=== PATIENT | female | born 1950 | race Caucasian/White ===

== ENCOUNTER 2017-02-06 16:55 | Emergency (ER) | payer MEDICARE, OTHER ==
[~2017-02-06 16:55] MED LIST: ALPR1TAB2 PO; AZIT500T2 PO; DULO60CA44 PO; GABA-586 PO; MESA400C PO
[2017-02-06] MEDS ORDERED: PRED50TA PO (17:28)
--- NOTE | 2017-02-06 17:28 | PHYS DOC ---
Past History Past Medical History: Anxiety, COPD, Depression Past Surgical History: Hysterectomy, Knee Replacement Smoking: Non-smoker Alcohol Use: None Drug Use: None Adult General Chief Complaint Chief Complaint: SKIN RASH/ABSCESS HPI HPI Patient is a 66 year old female who presents with rash. Reports 4 day history of generalized pruritic rash after working in her garden. Affects her torso and extremities. No facial involvement. Denies face/tongue/lip swelling, shortness of breath, vomiting, diarrhea. No other family members have rash. She saw her primary care doctor and received some medications but has no idea what they are. She has been taking Benadryl without relief. She is a poor historian. Review of Systems Review of Systems Constitutional: Denies fever or chills Eyes: Denies drainage HENT: Denies nasal congestion or sore throat Respiratory: Denies cough or shortness of breath Cardiovascular: Denies chest pain GI: Denies abdominal pain, nausea, vomiting, or diarrhea Musculoskeletal: Denies back pain or joint pain Integument: Reports rash Neurologic: Denies headache Allergies Allergies Allergies Coded Allergies Type Severity Reaction Last Updated Verified codeine Adverse Reaction Intermediate 01/02/15 Yes Physical Exam Physical Exam Constitutional: Well developed, well nourished, no acute distress, non-toxic appearance. HENT: Normocephalic, atraumatic, bilateral external ears normal, oropharynx moist, nose normal. no face/tongue/lip swelling. Eyes: conjunctiva normal, no discharge. Neck: supple, no stridor. Cardiovascular: no edema. Lungs & Thorax: no respiratory distress. Abdomen: nondistended. Skin: diffuse erythematous maculopapular rash to chest, abdomen, back, upper > lower extremities. no urticaria or vesicles. Extremities: No deformity Neurologic: Alert and oriented X 3 Current Patient Data Vital Signs Vital Signs Date Time Temp Pulse Resp B/P (MAP) Pulse Ox O2 Delivery O2 Flow Rate FiO2 02/06/17 17:05 98.1 91 22 97 Room Air EKG EKG [] Radiology/Procedures Radiology/Procedures [] Course & Med Decision Making Course & Med Decision Making Pertinent Labs and Imaging studies reviewed. (See chart for details) Patient presents with contact dermatitis. Unclear exactly what treatment she has already tried. Encouraged continued Benadryl, gave prednisone burst. Okay to use hydrocortisone ointment on small areas that are especially bothersome. Follow-up as needed with primary care physician if not improving in 2-3 days. Return to the emergency department for face/tongue/lip swelling, severe shortness of breath, any otherwise worsening condition. Discharged home in stable condition. [] Dragon Disclaimer Dragon Disclaimer This chart was dictated in whole or in part using Voice Recognition software in a busy, high-work load, and often noisy Emergency Department environment. It may contain unintended and wholly unrecognized errors or omissions. Departure Departure: Impression: Primary Impression: Skin rash Disposition: HOME, SELF-CARE Condition: STABLE Referrals: ANGELIC AVITIA DO (PCP) Patient Instructions: Rash, [id number] Additional Instructions: You were seen in the emergency department today for rash. This is likely a reaction to a plant substance he came in contact with. Take Benadryl or Zyrtec for itching, take prednisone for the next 4 days. Apply hydrocortisone ointment to especially itchy areas but do not apply to her whole body. Follow-up with primary care physician in 2-3 days if not improving. Return to the emergency department for face/tongue/lip swelling, severe shortness of breath, any otherwise worsening condition. Scripts Prednisone (PREDNISONE) 50 Mg Tablet 1 TAB PO DAILY, #4 TAB Prov: NORMA IZQUIERDO MD 02/06/17 NORMA IZQUIERDO MD Feb 06, 2017 17:28
[2017-02-06] MEDS ORDERED: predniSONE 10 MG TABLET ONE (17:29)
[2017-02-06] MEDS ORDERED: predniSONE 10 MG TABLET PO ONE (17:30)
[2017-02-06 17:45] VITALS: BP 121/72
== END 2017-02-06 17:49 | disposition home or self-care (01) ==
LOC: ER 16:55
DX: R21 Rash and other nonspecific skin eruption (principal); L29.9 Pruritus, unspecified; J44.9 Chronic obstructive pulmonary disease, unspecified; Z88.5 Allergy status to narcotic agent
CPT/HCPCS: 99283; J7512

== ENCOUNTER 2017-02-10 11:47 | Emergency (ER) | payer MEDICARE, OTHER ==
[~2017-02-10 11:47] MED LIST changes: +PRED50TA PO
[2017-02-10 11:55] VITALS: BP 144/101
--- NOTE | 2017-02-10 12:44 | PHYS DOC ---
General Chief Complaint: SKIN RASH/ABSCESS Stated Complaint: SKIN PROBLEM Time Seen by MD: 12:05 Source: patient, old records Exam Limitations: no limitations Problems: History of Present Illness Initial Comments Patient is a 66-year-old female who returns to the emergency department for evaluation of rash. Patient states she saw her primary care doctor initially for this condition and she was given a steroid injection and took "a prescription." No improvement with that treatment to the patient was seen here 5 days ago advised to take over -the-counter Benadryl and prescribed prednisone burst. She says her symptoms did improve initially the first few days of the steroids but the past couple of days the rash has increased in intensity. This team clean her linens and mattress and completely cleaned out her room, they cannot find a cause for this condition. They have ruled out bedbugs no one else in the home is affected the patient is not on immunosuppressive medications. She denies new known exposures she denies new hoarseness, deep breathing or dyspnea on exertion. No fever chills sweats or myalgias. The rash does get very itchy and keeps her awake at night she has not followed up with her primary care physician. Timing/Duration: changing over time Severity: mild Modifying Factors: improves with cold therapy Associated Symptoms: rash Allergies: Coded Allergies: codeine (Verified Adverse Reaction, Intermediate, 01/02/15) Past Medical History Medical History: other (anxiety, COPD, depression, rheumatoid arthritis, insomnia) Surgical History: other (hysterectomy, total knee replacement) Social History Smoker: quit greater than 1 year Alcohol: none Drugs: none Review of Systems Constitutional: denies chills, denies diaphoresis, denies fever, denies malaise Respiratory: denies cough, denies shortness of breath Cardiovascular: denies chest pain, denies palpitations Gastrointestinal: denies nausea, denies vomiting Genitourinary: denies frequency, denies hematuria Musculoskeletal: denies back pain, denies joint swelling, denies neck pain Psychiatric/Neurological: denies headache, denies numbness, denies paresthesia Immunological/Allergic: see HPI Physical Exam General Appearance: no apparent distress Ear, Nose, Throat: hearing grossly normal, normal ENT inspection Neck: non-tender, supple Respiratory: normal breath sounds, no respiratory distress Cardiovascular: normal peripheral pulses, regular rate, rhythm Back: normal inspection, no CVA tenderness Extremities: normal range of motion, non-tender Neurologic/Psychiatric: car top bolter II-XII nml as tested, no motor/sensory deficits, alert, normal mood/affect, oriented x 3 Skin: warm/dry (a few scattered areas of flat red skin lesions and they are not palpable, no warmth or induration or tenderness.) Orders, Labs, Meds I discussed need for dermatologic intervention as patient has failed PCP and emergency department treatments for this condition. I discussed signs and symptoms to monitor discussed close PCP follow-up for Derm referral. Patient expressed agreement and understanding. Departure Time of Disposition: 12:41 Disposition: HOME, SELF-CARE Diagnosis: Rash NOS Condition: STABLE Patient Instructions: Rash Additional Instructions: Avoid exertion remain in a cool temperature environment for optimal symptom control. [id number] Zyrtec/cetirizine for morning symptoms. Eann-ind-bphuueg Pepcid 20 mg twice daily. Prescription: Bactroban ointment applied to affected area twice daily, hydroxyzine 25 mg #30 Follow-up with your doctor on Sunday for a recheck and dermatology referral. Return to the ED with new or changing symptoms. TARYN BEDOYA DO Feb 10, 2017 12:44
== END 2017-02-10 12:55 | disposition home or self-care (01) ==
LOC: ER 11:47
DX: R21 Rash and other nonspecific skin eruption (principal); J44.9 Chronic obstructive pulmonary disease, unspecified; M06.9 Rheumatoid arthritis, unspecified; G47.00 Insomnia, unspecified; Z87.891 Personal history of nicotine dependence; Z88.5 Allergy status to narcotic agent
CPT/HCPCS: 99283

== ENCOUNTER 2017-02-24 15:16 | Emergency (ER) | payer MEDICARE, OTHER ==
[~2017-02-24] VITALS: Ht 162.6 cm; Wt 77.1 kg
[2017-02-24] MEDS ORDERED: IV NORMAL SALINE 1,000ML 1,000 ML IV SCH (15:35)
[2017-02-24] MEDS ORDERED: IPRATRPIUM/ALBUTEROL 0.5/2.5MG 3 ML NEBU. ONE (15:36)
[2017-02-24 15:50] LABS: BASO # 0.1 x10^3/uL (0.0-0.2); BASO % 1 % (0-3); EOS % 0 % (0-3); HEMATOCRIT 41.7 % (36.0-47.0); HEMOGLOBIN 13.9 g/dL (12.0-15.5); LYMPH # 0.9 x10^3/uL (1.0-4.8); LYMPH % 5 % (24-48); MEAN CORPUSCULAR HEMOGLOBIN 29 pg (25-35); MEAN CORPUSCULAR HGB CONC 33 g/dL (31-37); MEAN CORPUSCULAR VOLUME 88 fL (79-100); MONO # 1.4 x10^3/uL (0.0-1.1); MONO % 7 % (0-9); NEUT # 17.7 x10^3uL (1.8-7.7); NEUT % 88 % (31-73); PLATELET COUNT 156 x10^3/uL (140-400); RED BLOOD COUNT 4.75 x10^6/uL (3.50-5.40); RED CELL DISTRIBUTION WIDTH 15.3 % (11.5-14.5); WHITE BLOOD COUNT 20.1 x10^3/uL (4.0-11.0)
[2017-02-24] MEDS: fentaNYL PF 100 MCG/2 ML VIAL IV PRN ×2 (15:50→17:38)
[2017-02-24] MEDS ORDERED: IPRATRPIUM/ALBUTEROL 0.5/2.5MG 3 ML NEBU. NEB ONE (16:00)
--- NOTE | 2017-02-24 16:00 | PHYS DOC ---
Past History Past Medical History: Anxiety, COPD, Depression Past Surgical History: Hysterectomy, Knee Replacement Smoking: Non-smoker Alcohol Use: None Drug Use: None Adult General Chief Complaint Chief Complaint: ABDOMINAL PAIN HPI HPI Patient is a 66-year-old female brought to the ED by her daughter with the complaint of about a 3 day history of fever, cough, shortness of air, and abdominal pain. The patient's abdomen hurts across the upper abdomen, worse on the right. She's had no nausea or vomiting she hasn't been eating because it makes the pain worse. She feels terrible. She has COPD, takes breathing treatments at home, and feels somewhat short of air. It hurts when she coughs in her abdomen. Patient has not had cholecystectomy or appendectomy, she has had "2 hysterectomies". PCP [address] Mari Patient takes hormone troches because her doctor thinks that will make her feel better. Review of Systems Review of Systems Constitutional: Fever as in history of present illness Eyes: Some type of visual disturbance being treated with hormone troches HENT: Denies nasal congestion or sore throat [] Respiratory: She always has a cough, it may be a bit worse, also short of air Cardiovascular: Denies chest pain GI: As in history of present illness. Denies vomiting or diarrhea, denies bloody or black stools. : Denies dysuria or hematuria [] Integument: Denies rash or skin lesions [] Neurologic: Denies headache, focal weakness or sensory changes [] Current Medications Current Medications Current Medications Medications (Trade) Dose Ordered Sig/Niko Start Time Stop Time Status Last Admin Dose Admin Albuterol/ Ipratropium (Duoneb) 3 ml 1X ONCE 02/24/17 16:00 02/24/17 16:01 02/24/17 15:50 3 ML Fentanyl Citrate (Fentanyl 2ml Vial) 50 mcg PRN Q15MIN PRN 02/24/17 15:45 02/25/17 15:44 Sodium Chloride 1,000 ml @ 1,000 mls/hr Q1H 02/24/17 15:35 02/24/17 16:34 Allergies Allergies Allergies Coded Allergies Type Severity Reaction Last Updated Verified codeine Adverse Reaction Intermediate 01/02/15 Yes Physical Exam Physical Exam Constitutional: Uncomfortable 66-year-old female, tachycardic, tearful, appears to be dyspneic due to abdominal pain HENT: Normocephalic, atraumatic, bilateral external ears normal, nose normal. [ ] Eyes: conjunctiva normal, no discharge. [] Neck: Normal range of motion, no stridor. [] Cardiovascular:Heart rate regular rhythm, no murmur, tachycardia in the 120s Lungs & Thorax: Breath sounds present bilaterally, rhonchi present throughout, prolongation of expiratory phase Abdomen: Bowel sounds quiet, soft, no masses, no pulsatile masses. May be moderately distended. Tender across the upper abdomen and also tender in the right lower quadrant. Positive right upper quadrant and right upper quadrant tenderness without rebound or guarding. Skin: Warm, dry, no erythema, no rash. [] Extremities: No tenderness, no cyanosis, no clubbing, ROM intact, no edema. [] Neurologic: Alert and oriented X 3, normal motor function, normal sensory function, no focal deficits noted. [] Current Patient Data Vital Signs Vital Signs Date Time Temp Pulse Resp B/P (MAP) Pulse Ox O2 Delivery O2 Flow Rate FiO2 02/24/17 15:44 92 Room Air Lab Results Laboratory Tests Test 02/24/17 15:35 White Blood Count 20.1 x10^3/uL (4.0-11.0) H Red Blood Count 4.75 x10^6/uL (3.50-5.40) Hemoglobin 13.9 g/dL (12.0-15.5) Hematocrit 41.7 % (36.0-47.0) Mean Corpuscular Volume 88 fL (79-100) Mean Corpuscular Hemoglobin 29 pg (25-35) Mean Corpuscular Hemoglobin Concent 33 g/dL (31-37) Red Cell Distribution Width 15.3 % (11.5-14.5) H Platelet Count 156 x10^3/uL (140-400) Neutrophils (%) (Auto) 88 % (31-73) H Lymphocytes (%) (Auto) 5 % (24-48) L Monocytes (%) (Auto) 7 % (0-9) Eosinophils (%) (Auto) 0 % (0-3) Basophils (%) (Auto) 1 % (0-3) Neutrophils # (Auto) 17.7 x10^3uL (1.8-7.7) H Lymphocytes # (Auto) 0.9 x10^3/uL (1.0-4.8) L Monocytes # (Auto) 1.4 x10^3/uL (0.0-1.1) H Eosinophils # (Auto) 0.0 x10^3/uL (0.0-0.7) Basophils # (Auto) 0.1 x10^3/uL (0.0-0.2) Platelet Estimate Pending EKG EKG [] Radiology/Procedures Radiology/Procedures CT scan of the abdomen and pelvis read by the radiologist. Acute cholecystitis. One view portable chest x-ray read by the radiologist. No acute process. [] Course & Med Decision Making Course & Med Decision Making Pertinent Labs and Imaging studies reviewed. (See chart for details) 66-year-old female presents with several complaints but it seems like abdominal pain is her most significant complaint. It hurts to breathe, move, and cough. She is tachycardic. We will give her breathing treatment and some IV fluids, check some labs, chest x-ray, and CT scan. She is agreeable to this plan. White count 20,000, CT consistent with acute cholecystitis. She was given a dose of Zosyn. IV fluids were continued. I discussed the case with Dr. Cortes, hospital medicine at [facility]. The patient will need surgical consultation so [facility] will [facility] her. Transfer paperwork was done and transfer arrangements were made. I discussed this with the patient who is agreeable. I discussed the case with Dr. Sellers, surgeon on-call at [facility]. He agrees with the plan and asked to be notified when the patient arrives at [facility]. [] Dragon Disclaimer Dragon Disclaimer This chart was dictated in whole or in part using Voice Recognition software in a busy, high-work load, and often noisy Emergency Department environment. It may contain unintended and wholly unrecognized errors or omissions. Departure Departure: Impression: Primary Impression: Acute cholecystitis Disposition: 02 XFER SHT-TRM HOSP Condition: GUARDED Referrals: ANGELIC AVITIA DO (PCP) ELIAS CEE MD Feb 24, 2017 16:00
[2017-02-24 16:08] LABS: BACTERIA,URINE MANY /HPF (0-FEW); BILIRUBIN,URINE NEG (NEG); CLARITY,URINE CLOUDY; COLOR,URINE AMBER; GLUCOSE,URINE NEG (NEG); NITRITE,URINE NEG (NEG); RBC,URINE OCC /HPF (0-2); SQUAMOUS EPITHELIAL CELL,UR OCC /LPF; UROBILINOGEN,URINE 1 mg/dL (0.2 mg/dL); WBC,URINE 20-40 /HPF (0-4)
[2017-02-24 16:13] LABS: ALBUMIN 2.9 g/dL (3.4-5.0); ALBUMIN/GLOBULIN RATIO 0.6 (1.0-1.7); ALK PHOS 68 U/L (46-116); ALT (SGPT) 18 U/L (14-59); ANION GAP 7 (6-14); AST (SGOT) 19 U/L (15-37); BLOOD UREA NITROGEN 9 mg/dL (7-20); BUN/CREATININE RATIO 13 (6-20); CALCIUM 8.3 mg/dL (8.5-10.1); CARBON DIOXIDE 27 mmol/L (21-32); CHLORIDE 100 mmol/L (98-107); CREATINE KINASE 39 U/L (26-192); CREATININE 0.7 mg/dL (0.6-1.0); GFR 83.7; GLUCOSE 116 mg/dL (70-99); LIPASE 88 U/L (73-393); POTASSIUM 3.4 mmol/L (3.5-5.1); SODIUM 134 mmol/L (136-145); TOTAL PROTEIN 7.4 g/dL (6.4-8.2)
--- NOTE | 2017-02-24 16:15 | RAD ---
Indication right upper quadrant pain. Axial images pelvis were obtained. Note is made of a previous examination 10/24/2010. There is some volume loss at the right lung base likely reflecting atelectasis. Underlying pneumonia cannot be entirely excluded. The liver and spleen appear unremarkable. The gallbladder is distended. Additionally there is suggested gallbladder wall thickening. There is stranding surrounding the gallbladder. The constellation of imaging findings is most compatible with cholecystitis. Clinical correlation advised. No definite pancreatic abnormality is seen. No adrenal or renal pathology is seen. Imaging through the pelvis is essentially unremarkable. Occasional diverticula are noted associated with the large bowel. Scoliosis degenerative changes in the lumbar spine and neuro stimulating device are noted. A moderately large hiatus hernia is noted. IMPRESSION: Abdominal imaging findings most compatible with acute cholecystitis. Volume loss at the right lung base likely reflects atelectasis. Pneumonia is not entirely excluded. PQRS Compliance Statement: One or more of the following individualized dose reduction techniques were utilized for this examination: 1. Automated exposure control 2. Adjustment of the mA and/or kV according to patient size 3. Use of iterative reconstruction technique
--- NOTE | 2017-02-24 16:18 | RAD ---
Indication weakness and shortness of breath. History of COPD. A single view of the chest was obtained. Comparison is made to an exam 09/07/2016. The level of inspiratory and is not as good as on the previous exam. Heart size and pulmonary vessels are within normal limits. A focal infiltrate is not seen. There is slight elevation of the right hemidiaphragm, likely incidental. Neurostimulator is noted as well as postoperative changes associated with the proximal left humerus. IMPRESSION: Slightly suboptimal inspiratory effort. No acute process seen in the chest
[2017-02-24] MEDS ORDERED: PIPERACILLIN/TAZOBACTAM 3.375 GM in IV NORMAL SALINE 50ML 50 ML IV ONE (17:00)
[2017-02-24] MEDS ORDERED: IV NORMAL SALINE 50ML 50 ML ONE (17:01)
[2017-02-24] MEDS ORDERED: PIPERACILLIN/TAZOBACTAM 3.375 GM VIAL IV ONE (17:01)
[2017-02-24] MEDS ORDERED: IV NORMAL SALINE 1,000ML 1,000 ML IV ONE (18:15)
[2017-02-24] MEDS ORDERED: LORazepam 2 MG/ML VIAL IV ONE (18:15)
[2017-02-24] MEDS ORDERED: OXYC30TA PO (18:16)
[2017-02-24] MEDS ORDERED: PREG50CA PO ×2 (18:17)
[2017-02-24 19:00] VITALS: BP 148/82
[2017-02-24 21:20] LABS: % EOS 1 % (0-5); % LYMPHS 7 % (24-48); % MONOS 3 % (0-10); % SEGS 89 % (35-66); OVALOCYTES OCC; PLATELET CLUMP PRESENT; PLT ESTIMATE ADEQUATE (ADEQUATE); POLYCHROMASIA SLIGHT
== END 2017-02-24 19:04 | disposition short-term general hospital (02) ==
LOC: ER 15:16
DX: K81.0 Acute cholecystitis (principal); J44.9 Chronic obstructive pulmonary disease, unspecified; F41.9 Anxiety disorder, unspecified; Z88.5 Allergy status to narcotic agent
CPT/HCPCS: 36415; 71010; 74176; 80053; 81001; 82553; 83690; 84484; 85007; 85027; 87086; 94640; 96361; 96365; 96375; 96376; 99285; J2060; J2543; J3010; J7620; 87186; J7030

== ENCOUNTER 2017-03-20 20:02 | Emergency (ER) | payer MEDICARE, OTHER ==
[~2017-03-20 20:02] MED LIST changes: +OXYC30TA PO; +PREG50CA PO
[2017-03-20 20:50] LABS: BASO % 1 % (0-3); EOS # 0.2 x10^3/uL (0.0-0.7); EOS % 2 % (0-3); HEMOGLOBIN 11.3 g/dL (12.0-15.5); LYMPH # 0.9 x10^3/uL (1.0-4.8); LYMPH % 12 % (24-48); MEAN CORPUSCULAR HEMOGLOBIN 28 pg (25-35); MEAN CORPUSCULAR HGB CONC 33 g/dL (31-37); MEAN CORPUSCULAR VOLUME 85 fL (79-100); MONO # 0.7 x10^3/uL (0.0-1.1); MONO % 9 % (0-9); NEUT % 77 % (31-73); PLATELET COUNT 456 x10^3/uL (140-400); RED BLOOD COUNT 4.01 x10^6/uL (3.50-5.40); RED CELL DISTRIBUTION WIDTH 15.2 % (11.5-14.5); WHITE BLOOD COUNT 7.8 x10^3/uL (4.0-11.0)
[2017-03-20 21:11] LABS: CALCIUM 8.9 mg/dL (8.5-10.1); CREATININE 0.6 mg/dL (0.6-1.0); POTASSIUM 4.2 mmol/L (3.5-5.1)
[2017-03-20 21:38] LABS: BARBITURATES NEG (NEG); BENZODIAZEPINES POS (NEG); CANNABINOIDS NEG (NEG); COCAINE NEG (NEG); METHADONE NEG (NEG); OPIATES POS (NEG); PHENCYCLIDINE NEG (NEG)
[2017-03-20 21:42] LABS: AMPHETAMINE/METHAMPHETAMINE NEG (NEG)
[2017-03-20] MEDS ORDERED: fentaNYL PF 100 MCG/2 ML VIAL IV ONE (21:45)
--- NOTE | 2017-03-20 21:56 | EKG ---
[facility] ED [facility] [address] [place] [id number] Test Date: 2017-03-20 Test Time: 20:49:02 Pat Name: KARISHMA MERINO Department: Room: Gender: F Social Work Nurse: : 1950 Requested By: KENNY MCMULLEN Order Number: [id number] Reading MD: Measurements Intervals [place] Rate: 105 P: 34 SD: 144 QRS: -8 QRSD: 78 T: 57 QT: 350 QTc: 467 Interpretive Statements SINUS TACHYCARDIA LEFTWARD AXIS QRS(T) CONTOUR ABNORMALITY CANNOT RULE OUT ANTEROSEPTAL MYOCARDIAL DAMAGE RI6.01 Unconfirmed report No previous ECG available for comparison
[2017-03-20 22:51] LABS: BILIRUBIN,URINE NEG (NEG); CLARITY,URINE CLEAR; COLOR,URINE YELLOW; GLUCOSE,URINE NEG (NEG); UROBILINOGEN,URINE 0.2 mg/dL (0.2 mg/dL)
[2017-03-20 22:52] LABS: BACTERIA,URINE FEW /HPF (0-FEW); NITRITE,URINE NEG (NEG); RBC,URINE RARE /HPF (0-2); SQUAMOUS EPITHELIAL CELL,UR MOD /LPF; WBC,URINE OCC /HPF (0-4)
[2017-03-20 23:28] VITALS: BP 128/76
--- NOTE | 2017-03-21 00:29 | ED.ADGEN ---
Past History Past Medical History: Anxiety, Arthritis, COPD, Fibromyalgia, GERD Past Surgical History: Cholecystectomy, Hysterectomy, Other Smoking: Non-smoker Alcohol Use: None Drug Use: None Adult General HPI HPI Patient is a 66-year-old woman, history of COPD, uses oxygen as needed at nighttime, arthritis, GERD, anxiety, fibromyalgia, who presents to the emergency department with a complaint of "body aches and joint aches". Patient states she had a cholecystectomy performed about 5 weeks ago. She states that she has been using her home medications, which include hydrocodone and OxyContin , but has been experiencing continued muscle aches and joint aches, she states consistent with her fibromyalgia, "but worse". She denies any chest pain or shortness of breath, any cough or respiratory symptoms, any fevers or chills, any nausea or vomiting, abdominal pain, any urinary complaints, any diarrhea. She states that she has been having worsening pain throughout her entire body over the past 5 days. She states that her next appointment with her primary care provider is at the beginning of next month. Review of Systems Review of Systems Constitutional: Denies fever or chills [] Eyes: Denies change in visual acuity, redness, or eye pain [] HENT: Denies nasal congestion or sore throat [] Respiratory: Denies cough or shortness of breath [] Cardiovascular: No additional information not addressed in HPI [] GI: Denies abdominal pain, nausea, vomiting, bloody stools or diarrhea [] : Denies dysuria or hematuria [] Musculoskeletal: Denies back pain or joint pain [] Integument: Denies rash or skin lesions [] Neurologic: Denies headache, focal weakness or sensory changes [] Endocrine: Denies polyuria or polydipsia [] Current Medications Current Medications Current Medications Medications (Trade) Dose Ordered Sig/[facility] Start Time Stop Time Status Last Admin Dose Admin Fentanyl Citrate (Fentanyl 2ml Vial) 75 mcg 1X ONCE 03/20/17 21:45 03/20/17 21:46 DC 03/20/17 21:50 75 MCG Allergies Allergies Allergies Coded Allergies Type Severity Reaction Last Updated Verified codeine Adverse Reaction Intermediate 01/02/15 Yes Physical Exam Physical Exam Constitutional: Well developed, well nourished, no acute distress, non-toxic appearance. [] HENT: Normocephalic, atraumatic, bilateral external ears normal, oropharynx moist, no oral exudates, nose normal. [] Eyes: PERRLA, EOMI, conjunctiva normal, no discharge. [] Neck: Normal range of motion, no tenderness, supple, no stridor. [] Cardiovascular:Heart rate regular rhythm, no murmur, S1, S2, no rubs or gallops. [] Lungs & Thorax: Diminished breath sounds at bases bilaterally, no wheezing, rhonchi, rales. No chest wall crepitus or tenderness. [] Abdomen: Bowel sounds normal, soft, no tenderness, patient with healed surgical incisions noted, laparoscopic, no rebound, no rigidity, no guarding, no masses, no pulsatile masses. [] Skin: Warm, dry, no erythema, no rash. [] Back: No tenderness, no CVA tenderness. [] Extremities: No tenderness, no cyanosis, no clubbing, ROM intact, no edema. Negative Homans sign. Patient with well-healed surgical incisions noted over knees from arthroplasty. No swelling or erythema noted. Neurologic: Alert and oriented X 3, normal motor function, normal sensory function, no focal deficits noted. [] Psychologic: Affect normal, judgement normal, mood normal. [] Current Patient Data Vital Signs Vital Signs Date Time Temp Pulse Resp B/P (MAP) Pulse Ox O2 Delivery O2 Flow Rate FiO2 03/20/17 21:50 20 94 Room Air 03/20/17 20:05 98.3 113 Lab Results Laboratory Tests Test 03/20/17 20:33 03/20/17 21:14 White Blood Count 7.8 x10^3/uL (4.0-11.0) Red Blood Count 4.01 x10^6/uL (3.50-5.40) Hemoglobin 11.3 g/dL (12.0-15.5) L Hematocrit 34.0 % (36.0-47.0) L Mean Corpuscular Volume 85 fL (79-100) Mean Corpuscular Hemoglobin 28 pg (25-35) Mean Corpuscular Hemoglobin Concent 33 g/dL (31-37) Red Cell Distribution Width 15.2 % (11.5-14.5) H Platelet Count 456 x10^3/uL (140-400) #H Neutrophils (%) (Auto) 77 % (31-73) H Lymphocytes (%) (Auto) 12 % (24-48) L Monocytes (%) (Auto) 9 % (0-9) Eosinophils (%) (Auto) 2 % (0-3) Basophils (%) (Auto) 1 % (0-3) Neutrophils # (Auto) 6.0 x10^3uL (1.8-7.7) Lymphocytes # (Auto) 0.9 x10^3/uL (1.0-4.8) L Monocytes # (Auto) 0.7 x10^3/uL (0.0-1.1) Eosinophils # (Auto) 0.2 x10^3/uL (0.0-0.7) Basophils # (Auto) 0.0 x10^3/uL (0.0-0.2) Sodium Level 137 mmol/L (136-145) Potassium Level 4.2 mmol/L (3.5-5.1) Chloride Level 102 mmol/L (98-107) Carbon Dioxide Level 26 mmol/L (21-32) Anion Gap 9 (6-14) Blood Urea Nitrogen 6 mg/dL (7-20) L Creatinine 0.6 mg/dL (0.6-1.0) Estimated GFR (Cockcroft-Gault) 100.0 Glucose Level 106 mg/dL (70-99) H Calcium Level 8.9 mg/dL (8.5-10.1) Troponin I Quantitative < 0.017 ng/mL (0-0.055) RE-Tdz-B-Type Natriuretic Peptide 230 pg/mL (0-124) H Urine Collection Type Unknown Urine Color Yellow Urine Clarity Clear Urine pH 7.0 Urine Specific [place] 1.010 Urine Protein Neg (NEG-TRACE) Urine Glucose (UA) Neg mg/dL (NEG) Urine Ketones (Stick) Neg mg/dL (NEG) Urine Blood Trace (NEG) Urine Nitrite Neg (NEG) Urine Bilirubin Neg (NEG) Urine Urobilinogen Dipstick 0.2 mg/dL (0.2 mg/dL) Urine Leukocyte Esterase Neg (NEG) Urine RBC Rare /HPF (0-2) Urine WBC Occ /HPF (0-4) Urine Squamous Epithelial Cells Mod /LPF Urine Bacteria Few /HPF (0-FEW) Urine Opiates Screen Pos (NEG) Urine Methadone Screen Neg (NEG) Urine Barbiturates Neg (NEG) Urine Phencyclidine Screen Neg (NEG) Urine Amphetamine/Methamphetamine Neg (NEG) Urine Benzodiazepines Screen Pos (NEG) Urine Cocaine Screen Neg (NEG) Urine Cannabinoids Screen Neg (NEG) Urine Ethyl Alcohol Neg (NEG) EKG EKG EC: Sinus tachycardia, heart rate 105 beats/minute, left axis deviation, contour normality is noted in the anterior septal leads, QTc of 467, NH 144, QR 78, no ST elevations or depressions, abnormal ECG, does not meet STEMI criteria. [] Radiology/Procedures Radiology/Procedures Chest x-ray: One view: Normal cardiopulmonary silhouette, no infiltrates, no effusions, no pneumothorax, no soft tissue or bony abnormality is identified. Patient noted to have neurostimulator in place, also noted to have hardware in place in the left humerus, no acute abnormality is identified. As interpreted by me. [] Course & Med Decision Making Course & Med Decision Making Pertinent Labs and Imaging studies reviewed. (See chart for details) Patient with vague complaints, mostly complaining of joint pain and muscle pain , which he states is consistent with previous prior myalgia. Patient has been taking her home narcotic medications, denies any new or concerning symptoms, however based on her multiple complaints, laboratory studies, chest x-ray and ECG were ordered to assess for occult conditions. Patient initially mildly tachycardic and arrival, and reevaluation tachycardia has resolved. Patient did receive fentanyl in the emergency department, delay in obtaining lab studies, as it took sometime to obtain urine. This did not reveal any evidence of infection, patient noted to have elevated platelet count, otherwise laboratory studies did not reveal any concerning findings. When I reevaluated the patient to discuss findings she asked "can I go home now?", and asked us to call her son to pick her up. She states that she is feeling better, although she does continue to have some pain, and would like to follow-up with her primary care provider in the office tomorrow. States she will call tomorrow morning to schedule an appointment for additional evaluation. She states she has all medications at home, and that she walks with a cane and walker home, and feels as though she is able to go home now and function without any difficulties. I did discuss findings with both patient, along with concerning symptoms that prompt return. Patient voiced understanding and agreement, discharged home in stable condition with plan and precautions as above. Final Impression Final Impression [] Problems: Dragon Disclaimer Dragon Disclaimer This electronic medical record was generated, in whole or in part, using a voice recognition dictation system. Departure: Impression: Primary Impression: Musculoskeletal pain Disposition: HOME, SELF-CARE Condition: IMPROVED KENNY MCMULLEN DO Mar 21, 2017 00:29
--- NOTE | 2017-03-21 07:44 | RAD ---
Portable chest, 03/20/2017: History: Weakness Comparison is made to a study from 02/24/2017. A spinal stimulator lead extends into the lower thoracic spinal canal. The heart size and pulmonary vascularity are normal. There is an unchanged retrocardiac density just to left of midline representing the patient's known hiatal hernia. Aortic calcific plaquing is present. No acute infiltrates are seen. There is no evidence of pleural fluid. A surgical plate and screws is noted related to the proximal left humerus. IMPRESSION: 1. Hiatal hernia. 2. No acute cardiopulmonary abnormality is detected.
== END 2017-03-20 23:45 | disposition home or self-care (01) ==
LOC: ER 20:02
DX: M79.1 Myalgia (principal); M79.7 Fibromyalgia; J44.9 Chronic obstructive pulmonary disease, unspecified; K21.9 Gastro-esophageal reflux disease without esophagitis; M19.90 Unspecified osteoarthritis, unspecified site; Z90.49 Acquired absence of other specified parts of digestive tract; Z90.710 Acquired absence of both cervix and uterus; Z88.5 Allergy status to narcotic agent
CPT/HCPCS: 36415; 71010; 80048; 80307; 81001; 83880; 84484; 85025; 93005; 96374; 99285; J3010; G0479

== ENCOUNTER 2017-05-16 12:34 | Emergency (ER) | payer MEDICARE, OTHER ==
[~2017-05-16] VITALS: Ht 162.6 cm; Wt 77.1 kg
--- NOTE | 2017-05-16 12:42 | PHYS DOC ---
Past History Past Medical History: Anxiety, Arthritis, COPD, Fibromyalgia, GERD Past Surgical History: Cholecystectomy, Hysterectomy, Other Smoking: Non-smoker Alcohol Use: None Drug Use: None Adult General Chief Complaint Chief Complaint: MULTIPLE COMPLAINTS [facility] HPI Patient is a 66 year old female who presents with in generalized pain. She states that her primary care physician took her off hydrocodone's and morphine and put her on milnacipran for her fibromyalgia. She denies any vomiting of states she's felt nauseated. She denies any diarrhea, abdominal pain fevers chills. She states she feels worse and she started this new medicine for her fibromyalgia. Review of Systems Review of Systems Constitutional: Denies fever or chills Eyes: Denies change in visual acuity, redness, or eye pain HENT: Denies nasal congestion or sore throat Respiratory: Denies cough or shortness of breath Cardiovascular: No additional information not addressed in HPI GI: Denies abdominal pain, vomiting, bloody stools or diarrhea, positive for nausea, : Denies dysuria or hematuria Musculoskeletal: Denies back pain or joint pain Integument: Denies rash or skin lesions Neurologic: Denies headache, focal weakness or sensory changes Endocrine: Denies polyuria or polydipsia Allergies Allergies Allergies Coded Allergies Type Severity Reaction Last Updated Verified codeine Adverse Reaction Intermediate 01/02/15 Yes Physical Exam Physical Exam Constitutional: Well developed, no acute distress, non-toxic appearance. HENT: Normocephalic, atraumatic, bilateral external ears normal, oropharynx moist, no oral exudates, nose normal. Eyes: PERRLA, EOMI, conjunctiva normal, no discharge. Neck: Normal range of motion, no tenderness, supple, no stridor. Cardiovascular:Heart rate regular rhythm, no murmur Lungs & Thorax: Bilateral breath sounds clear to auscultation Abdomen: Bowel sounds normal, soft, no tenderness, no masses, no pulsatile masses. Skin: Warm, dry, no erythema, no rash. Back: No tenderness, no CVA tenderness. Extremities: No tenderness, no cyanosis, no clubbing, ROM intact, no edema. Neurologic: Alert and oriented X 3, normal motor function, normal sensory function, no focal deficits noted. Psychologic: Affect normal, judgement normal, mood normal. Crying EKG EKG KG shows sinus tachycardia [address]ations or concerning T- wave inversions, left axis deviation, QTC 468 ms, as interpreted by me. Radiology/Procedures Radiology/Procedures [] Impressions: Chronic pain Course & Med Decision Making Course & Med Decision Making Pertinent Labs and Imaging studies reviewed. (See chart for details) Labs do not show any acute abnormality's. She was crying when she arrived in after IV morphine she is relaxed and very pleasant. She did become upset when told her she needs to be weaned off her pain meds therefore I have agreed to supply her with 5 tablets of 5/325 hydrocodone and will need to follow-up with primary care physician within next 24 hours. She is agreeable to the plan and being discharged in stable condition with return precautions. Dragon Disclaimer Dragon Disclaimer This chart was dictated in whole or in part using Voice Recognition software in a busy, high-work load, and often noisy Emergency Department environment. It may contain unintended and wholly unrecognized errors or omissions. Departure Departure: Impression: Primary Impression: Musculoskeletal pain Disposition: HOME, SELF-CARE Condition: STABLE Referrals: ANGELIC AVITIA DO (PCP) Patient Instructions: Chronic Pain Additional Instructions: You were seen today for your chronic pain in the fact that your being weaned off the pain meds. You feel better after we gave you some narcotic pain meds and fluids. Your labs do not show any acute abnormality's. Your being discharged home. He will need to follow back up with your primary care physician. You being discharged with 5 tablets of [place]. Please use them sparingly over the next 24 hours and follow-up with your primary care physician within 24 hours. Return the ER for severe pain, nausea vomiting, high fevers or other concerns. Scripts Hydrocodone Bit/Acetaminophen (NORCO 5-325 TABLET) 1 Each Tablet 1 TAB PO PRN Q6HRS Y for PAIN, #5 TAB 0 Refills Prov: HARITHA HIGHTOWER MD 05/16/17 HARITHA HIGHTOWER MD May 16, 2017 12:42
[2017-05-16] MEDS ORDERED: IV NORMAL SALINE 1,000ML 1,000 ML IV ONE (13:00)
[2017-05-16] MEDS ORDERED: MORPHINE SULFATE 2 MG/ML DISP.SYRIN. IV/SQ PRN (13:00)
[2017-05-16 13:24] LABS: BACTERIA,URINE 0 /HPF (0-FEW); BILIRUBIN,URINE NEG (NEG); CLARITY,URINE CLEAR; COLOR,URINE YELLOW; GLUCOSE,URINE NEG (NEG); HYALINE CASTS, URINE OCC /HPF; NITRITE,URINE NEG (NEG); RBC,URINE 0 /HPF (0-2); SQUAMOUS EPITHELIAL CELL,UR MOD /LPF; UROBILINOGEN,URINE 1 mg/dL (0.2 mg/dL); WBC,URINE RARE /HPF (0-4)
--- NOTE | 2017-05-16 13:26 | EKG ---
[address] [address] Test Date: 2017-05-16 Test Time: 13:22:10 Pat Name: KARISHMA MERINO Department: Room: Gender: F Apple Turner: STEPHANIA : 1950 Requested By: HARITHA HIGHTOWER Order Number: [id number] Reading MD: Measurements Intervals [place] Rate: 112 P: 36 AK: 124 QRS: -3 QRSD: 74 T: 52 QT: 342 QTc: 468 Interpretive Statements SINUS TACHYCARDIA LEFTWARD AXIS NO SPECIFIC ECG ABNORMALITIES RI6.01 Compared to ECG 03/20/2017 20:49:02 Left-axis deviation now present
[2017-05-16 13:29] LABS: BASO # 0.1 x10^3/uL (0.0-0.2); BASO % 1 % (0-3); EOS # 0.1 x10^3/uL (0.0-0.7); EOS % 1 % (0-3); HEMATOCRIT 30.9 % (36.0-47.0); HEMOGLOBIN 10.2 g/dL (12.0-15.5); LYMPH # 1.6 x10^3/uL (1.0-4.8); LYMPH % 15 % (24-48); MEAN CORPUSCULAR HEMOGLOBIN 26 pg (25-35); MEAN CORPUSCULAR HGB CONC 33 g/dL (31-37); MEAN CORPUSCULAR VOLUME 80 fL (79-100); MONO # 0.6 x10^3/uL (0.0-1.1); MONO % 6 % (0-9); NEUT % 77 % (31-73); PLATELET COUNT 505 x10^3/uL (140-400); RED BLOOD COUNT 3.88 x10^6/uL (3.50-5.40); RED CELL DISTRIBUTION WIDTH 19.1 % (11.5-14.5); WHITE BLOOD COUNT 10.3 x10^3/uL (4.0-11.0)
[2017-05-16 13:32] LABS: AMPHETAMINE/METHAMPHETAMINE NEG (NEG); BARBITURATES NEG (NEG); BENZODIAZEPINES POS (NEG); CANNABINOIDS NEG (NEG); COCAINE NEG (NEG); METHADONE NEG (NEG); OPIATES POS (NEG); PHENCYCLIDINE NEG (NEG)
[2017-05-16 13:57] LABS: ALBUMIN 3.3 g/dL (3.4-5.0); ALK PHOS 93 U/L (46-116); ALT (SGPT) 19 U/L (14-59); ANION GAP 12 (6-14); AST (SGOT) 15 U/L (15-37); BLOOD UREA NITROGEN 17 mg/dL (7-20); CALCIUM 8.8 mg/dL (8.5-10.1); CARBON DIOXIDE 25 mmol/L (21-32); CHLORIDE 104 mmol/L (98-107); CREATINE KINASE 29 U/L (26-192); CREATININE 0.7 mg/dL (0.6-1.0); DIRECT BILIRUBIN 0.1 mg/dL (0.0-0.2); GFR 83.7; GLUCOSE 115 mg/dL (70-99); LIPASE 116 U/L (73-393); MAGNESIUM 1.8 mg/dL (1.8-2.4); POTASSIUM 3.5 mmol/L (3.5-5.1); SODIUM 141 mmol/L (136-145); TOTAL BILIRUBIN 0.3 mg/dL (0.2-1.0); TOTAL PROTEIN 7.9 g/dL (6.4-8.2)
[2017-05-16] MEDS ORDERED: HYDR-971 PO (15:06)
[2017-05-16 15:20] VITALS: BP 120/90
== END 2017-05-16 15:20 | disposition home or self-care (01) ==
LOC: ER 12:34
DX: M79.1 Myalgia (principal); G89.29 Other chronic pain; J44.9 Chronic obstructive pulmonary disease, unspecified; K21.9 Gastro-esophageal reflux disease without esophagitis; M79.7 Fibromyalgia; F41.9 Anxiety disorder, unspecified; M19.90 Unspecified osteoarthritis, unspecified site; Z88.5 Allergy status to narcotic agent
CPT/HCPCS: 36415; 80048; 80076; 80307; 81001; 82553; 83690; 83735; 85025; 93005; 96361; 96374; 99285; J2270; G0479; J7030

== ENCOUNTER 2017-05-20 15:26 | Emergency (ER) | payer MEDICARE, OTHER ==
[~2017-05-20] VITALS: Ht 162.6 cm; Wt 77.1 kg
[~2017-05-20 15:26] MED LIST changes: +HYDR-971 PO
[2017-05-20] MEDS ORDERED: IV NORMAL SALINE 1,000ML 1,000 ML IV SCH (15:44)
[2017-05-20] MEDS ORDERED: ONDANSETRON PF 4 MG/2 ML VIAL. IV ONE ×2 (16:00→19:30)
--- NOTE | 2017-05-20 16:24 | EKG ---
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
[2017-05-20 16:27] LABS: BASO # 0.1 x10^3/uL (0.0-0.2); BASO % 1 % (0-3); EOS # 0.1 x10^3/uL (0.0-0.7); EOS % 1 % (0-3); HEMATOCRIT 22.6 % (36.0-47.0); HEMOGLOBIN 7.2 g/dL (12.0-15.5); LYMPH # 1.9 x10^3/uL (1.0-4.8); LYMPH % 20 % (24-48); MEAN CORPUSCULAR HEMOGLOBIN 26 pg (25-35); MEAN CORPUSCULAR HGB CONC 32 g/dL (31-37); MEAN CORPUSCULAR VOLUME 81 fL (79-100); MONO # 0.7 x10^3/uL (0.0-1.1); MONO % 7 % (0-9); NEUT # 6.8 x10^3uL (1.8-7.7); NEUT % 71 % (31-73); PLATELET COUNT 477 x10^3/uL (140-400); RED BLOOD COUNT 2.81 x10^6/uL (3.50-5.40); WHITE BLOOD COUNT 9.5 x10^3/uL (4.0-11.0)
--- NOTE | 2017-05-20 16:28 | PHYS DOC ---
Past History Past Medical History: Anxiety, Arthritis, COPD, Fibromyalgia, GERD Past Surgical History: Cholecystectomy, Hysterectomy, Other Smoking: Non-smoker Alcohol Use: None Drug Use: None Adult General Chief Complaint Chief Complaint: DIZZY/LIGHT HEADED HPI HPI Patient is a 66-year-old female brought to the ED by her son, who she lives with. Patient complains of vomiting and diarrhea since last night. She's dizzy. She hurts "everywhere". Patient has a history of fibromyalgia and rheumatoid arthritis. She had gallbladder surgery 3 months ago and she hasn't been well since. She has been having black stools which now are liquid. She has pain in her abdomen, chest, both arms but especially her right arm. Patient had previously been on opiates for pain but evidently has run out, her physician has been out of town. She has not been able to see him in the last month. Review of Systems Review of Systems Constitutional: Denies fever or chills , complains of generalized weakness and dizziness HENT: Denies nasal congestion or sore throat [] Respiratory: She feels short of breath Cardiovascular: She has pain in her chest GI: As in history of present illness : Denies dysuria or hematuria [] Musculoskeletal: She has generalized pain Integument: Denies rash or skin lesions [] Neurologic: Denies headache, focal weakness or sensory changes [] Current Medications Current Medications Current Medications Medications (Trade) Dose Ordered Sig/[facility] Start Time Stop Time Status Last Admin Dose Admin Ondansetron HCl (Zofran) 4 mg 1X ONCE 05/20/17 16:00 05/20/17 16:01 DC 05/20/17 15:50 4 MG Sodium Chloride 1,000 ml @ 1,000 mls/hr Q1H 05/20/17 15:44 05/20/17 16:43 05/20/17 15:50 1,000 MLS/HR Allergies Allergies Allergies Coded Allergies Type Severity Reaction Last Updated Verified codeine Adverse Reaction Intermediate 01/02/15 Yes Physical Exam Physical Exam Constitutional: 66-year-old female who appears to be uncomfortable. She is hypotensive with a blood pressure of 88/58. She is tachycardic at 139. Pulse ox on room air 100%. She is tachypneic. HENT: Normocephalic, atraumatic, bilateral external ears normal, nose normal. [ ] Eyes: conjunctiva normal, no discharge. [] Neck: Normal range of motion, no stridor. [] Cardiovascular:Heart rate regular tachycardia Lungs & Thorax: Bilateral breath sounds clear to auscultation [] Abdomen: Bowel sounds normal, soft, nondistended no masses, no pulsatile masses. Mild generalized tenderness to palpation, no localized tenderness, no rebound or guarding. Skin: Warm, dry, no erythema, no rash. [] Extremities: No tenderness, no cyanosis, no clubbing, ROM intact, no edema. [] Neurologic: Alert and oriented X 3, normal motor function, no focal deficits noted. [] EKG EKG 12-lead EKG read by me. Sinus tachycardia. Heart rate 105. There are no acute ST or T wave changes indicative of ischemia or infarction. No STEMI. [id number][] Radiology/Procedures Radiology/Procedures One view portable chest x-ray read by the radiologist. No acute findings.[] Course & Med Decision Making Course & Med Decision Making Pertinent Labs and Imaging studies reviewed. (See chart for details) 66-year-old female with a history of chronic pain from fibromyalgia and rheumatoid arthritis presents with vomiting and diarrhea since last night with hypotension and tachycardia. The patient will be given an IV fluid bolus. We will check some labs, but the patient is significantly hypotensive and I advised her we will most likely need to hospitalize her. Patient's blood pressure improved and her tachycardia improved after 1 L IV fluids. She continued to mentate normally. Patient's stool is dark black in color and appears to me that it would be consistent with GI bleed. However, the fecal occult blood testing per lab was negative. I have a hard time believing that result. I reviewed the patient's chart, and the patient was here 4 days ago and had a CBC and her hemoglobin was 10.2, today is 7.2. It's dropped from 13 since February. I discussed the case with Dr. Reyes who will admit the patient but he wants the patient transferred to [facility] because the patient will need endoscopy and likely will need blood transfusion. I believe the patient is stable for transfer. Nursing staff made arrangements for the patient to have bed at [facility] and be transferred by EMS. She was much more stable in the emergency department here after IV fluids. She was given a dose of IV Protonix. [] Dragon Disclaimer Dragon Disclaimer This chart was dictated in whole or in part using Voice Recognition software in a busy, high-work load, and often noisy Emergency Department environment. It may contain unintended and wholly unrecognized errors or omissions. Departure Departure: Impression: Primary Impression: Hypotension Additional Impressions: Anemia GI bleed Black stool Disposition: 02 XFER SHT-TRM HOSP Condition: STABLE Referrals: ANGELIC AVITIA DO (PCP) Problem Qualifiers ELIAS CEE MD May 20, 2017 16:28
--- NOTE | 2017-05-20 16:29 | RAD ---
Portable AP view CXR: Clinical indications: Chest pain with dizziness for one day. Comparison: March 20, 2017. Findings: No acute lung infiltrate or pleural effusion or pulmonary edema or lung mass or pneumothorax is seen. A retrocardiac hiatal hernia is again evident. The heart size, pulmonary vasculature, mediastinum and both edith are otherwise unremarkable. Thoracic spinal canal stimulator device is seen. Impression: No acute radiographic abnormality is seen. Hiatal hernia.
[2017-05-20 16:51] LABS: ALBUMIN 2.7 g/dL (3.4-5.0); ALBUMIN/GLOBULIN RATIO 0.7 (1.0-1.7); ALK PHOS 79 U/L (46-116); ALT (SGPT) 21 U/L (14-59); ANION GAP 10 (6-14); AST (SGOT) 17 U/L (15-37); BLOOD UREA NITROGEN 31 mg/dL (7-20); BUN/CREATININE RATIO 44 (6-20); CARBON DIOXIDE 25 mmol/L (21-32); CHLORIDE 106 mmol/L (98-107); CREATINE KINASE < 15 U/L (26-192); CREATININE 0.7 mg/dL (0.6-1.0); GFR 83.7; GLUCOSE 127 mg/dL (70-99); SODIUM 141 mmol/L (136-145); TOTAL BILIRUBIN 0.2 mg/dL (0.2-1.0); TOTAL PROTEIN 6.5 g/dL (6.4-8.2)
[2017-05-20 17:29] LABS: BACTERIA,URINE 0 /HPF (0-FEW); BILIRUBIN,URINE NEG (NEG); CLARITY,URINE CLEAR; COLOR,URINE STRAW; GLUCOSE,URINE NEG (NEG); NITRITE,URINE NEG (NEG); RBC,URINE 0 /HPF (0-2); UROBILINOGEN,URINE 1 mg/dL (0.2 mg/dL); WBC,URINE OCC /HPF (0-4)
[2017-05-20 17:30] LABS: FECAL OB PT NEGATIVE (NEG)
[2017-05-20] MEDS ORDERED: PANTOPRAZOLE IV PUSH 40 MG VIAL. IVP ONE (18:15)
[2017-05-20 19:18] VITALS: BP 135/77
== END 2017-05-20 19:35 | disposition short-term general hospital (02) ==
LOC: ER 15:26
DX: K92.2 Gastrointestinal hemorrhage, unspecified (principal); K92.1 Melena; D64.9 Anemia, unspecified; I95.9 Hypotension, unspecified; J44.9 Chronic obstructive pulmonary disease, unspecified; K21.9 Gastro-esophageal reflux disease without esophagitis; M06.9 Rheumatoid arthritis, unspecified; M79.7 Fibromyalgia; F41.9 Anxiety disorder, unspecified; Z90.49 Acquired absence of other specified parts of digestive tract; Z90.710 Acquired absence of both cervix and uterus; Z88.5 Allergy status to narcotic agent
CPT/HCPCS: 36415; 51702; 71010; 80053; 81001; 82274; 82553; 84484; 85025; 93005; 96361; 96374; 96375; 96376; 99285; C9113; J2405; J3010; J7030

== ENCOUNTER 2017-06-15 18:07 | Inpatient (IN) | payer MEDICARE, OTHER ==
[~2017-06-15] VITALS: Ht 162.6 cm; Wt 72.6 kg
[2017-06-15] MEDS ORDERED: IV NORMAL SALINE 1,000ML 1,000 ML IV SCH (18:38)
[2017-06-15] MEDS ORDERED: 0.9 % SODIUM CHLORIDE 10 ML DISP.SYRIN. IV PRN (18:45)
--- NOTE | 2017-06-15 18:56 | PHYS DOC ---
Past History Past Medical History: COPD, Fibromyalgia Past Surgical History: Hysterectomy, Knee Replacement, Other Additional Past Surgical Histo: shoulder surgery Smoking: Quit Greater Than 1 Year Alcohol Use: None Drug Use: None Adult General Chief Complaint Chief Complaint: MECHANICAL FALL HPI HPI It is debilitated 66-year-old female with history of COPD who complains of fortified a history of progressive weakness and dizziness with a fall today. Patient admits her last several days she's been increasing short of breath especially with exertion. She's had a nonproductive cough subjective chills but no fevers. She's been using cough drops L treat her symptoms and normally uses oxygen at home 2 L all the time to help with her shortness of breath at night. She has some chest pressure 2 days ago describes as a squeezing in the center of her chest with no radiation to her back. She denies her nausea, vomiting, diarrhea, abdominal pain, neck pain. She has chronic arthritic pain in her all joints there is nothing new about this today no localized swelling to her legs. Patient denies any change in medications she says she feels so dizzy and lightheaded as she stands and tries to exert herself that she is fallen twice last several days. Leading from a standing position to sitting position in her bathroom and her laundry room. She denies any loss of consciousness or hitting her head denies any specific weakness in any one particular limb. Patient denies any chest pain at this time or prior cardiac history. She was found down by her grandson today after being down for about 20 minutes. Differential diagnosis: Acute myocardial ischemia, heart failure, cardiac tamponade, bronchospasm, pulmonary embolism, pneumothorax, pulmonary infection i.e. bronchitis or pneumonia, upper airway obstruction, anaphylaxis, aspiration , psychogenic, pulmonary contusion, toxidrome, pneumomediastinum, noncardiogenic pulmonary edema or ARDS, COPD, tuberculosis, cystic fibrosis, asthma, high altitude pulmonary edema, valvular dysfunction, cardiac dysrhythmia , stroke, neuromuscular diseases like myasthenia gravis gravis, ALS, Guillain- Brock syndrome, metabolic acidosis to include diabetic ketoacidosis, sepsis, and obstructive disorders like massive obesity Review of Systems Review of Systems Constitutional: She has suffered from subjective chills Eyes: Denies change in visual acuity, redness, or eye pain [] HENT: Denies nasal congestion or sore throat [] Respiratory: She has chronic dry cough with shortness of breath has progressive. [] Cardiovascular: No additional information not addressed in HPI [] GI: Denies abdominal pain, nausea, vomiting, bloody stools or diarrhea [] : Denies dysuria or hematuria [] Musculoskeletal: Denies back pain she complains of joint pain in most extremities[] Integument: Denies rash or skin lesions [] Neurologic: She has generalized weakness with no focal deficits, generalized dizziness with exertion. Endocrine: Denies polyuria or polydipsia [] All other systems were reviewed and found to be within normal limits, except as documented in this note. Current Medications Current Medications Current Medications Medications (Trade) Dose Ordered Sig/Niko Start Time Stop Time Status Last Admin Dose Admin Albuterol/ Ipratropium (Duoneb) 3 ml 1X ONCE 06/15/17 18:45 06/15/17 18:46 UNV Fentanyl Citrate (Fentanyl 2ml Vial) 50 mcg PRN Q15MIN PRN 06/15/17 18:45 06/16/17 18:44 UNV Methylprednisolone Sodium Succinate (SOLU-Medrol 125MG VIAL) 125 mg 1X ONCE 06/15/17 18:45 06/15/17 18:46 UNV Sodium Chloride (Normal Saline Flush) 10 ml QSHIFT PRN 06/15/17 18:45 UNV Allergies Allergies Allergies Coded Allergies Type Severity Reaction Last Updated Verified codeine Adverse Reaction Intermediate 01/02/15 Yes Physical Exam Physical Exam Constitutional: Patient is obese poorly nourished with poor dentition she is tachypnea and only speaking in 3-4 word sentences. HENT: Normocephalic, atraumatic, bilateral external ears normal, very poor dry mucous membranes with poor dentition and multiple dental caries with very states of erosion. No oral exudates, nose normal. [] Eyes: PERRLA, EOMI, conjunctiva normal, no discharge. [] Neck: Normal range of motion, no tenderness, supple, no stridor. [] Cardiovascular:Heart rate regular rhythm, no murmur [] Lungs & Thorax: She has significant rhonchi in the bases bilaterally with this extensive wheezing throughout her lung cooley. She has no sensory muscle use or retractions. Abdomen: Bowel sounds normal, soft, no tenderness, no masses, no pulsatile masses. [] Skin: Warm, dry, does have bruises on her arms and various states of healing. Back: No tenderness, no CVA tenderness. [] Extremities: Grossly decreased range of motion secondary to arthritis but no clubbing cyanosis or edema noted range of motion is intact for patient at baseline Neurologic: Alert and oriented X 3, normal motor function, normal sensory function, no focal deficits noted. [] Psychologic and seems somewhat anxious but is able answer questions without hesitation no memory or judgment issues.[] EKG EKG []EKG timed 6:46 PM date 06/15/2017 PM read by me demonstrates a sinus rhythm with a P-wave QRS there is a fine movement artifact noted from a electric similar some of the patient's body patient has purulent 1.2 which is normal, QRS width of 84 which is normal, QTC of 46/and normal. There is no ST segment or T-wave changes consistent with acute cardiac ischemia. Radiology/Procedures Radiology/Procedures []Patient's 1 view chest x-ray portable completed on arrival actually 6:49 PM read by me demonstrate a small hyperinflation and cardiomegaly with no obvious signs of infiltrate [place] [address] IMAGING REPORT Signed PATIENT: KARISHMA MERINO ACCOUNT: [id number] : 1950 LOCATION: ER AGE: 66 SEX: F EXAM STATUS: REG ER ORD. PHYSICIAN: OMAR SIMMONS MD REASON: fall PROCEDURE: CT ANGIOGRAPHY CHEST CTA scan of the Chest with Contrast (Pulmonary Embolism protocol) 06/15/2017 Clinical History: Shortness of breath and cough. Technique: After the intravenous administration of 75 cc of Isovue-370, contiguous, 0.625 mm axial sections were obtained through the chest. 2 mm axial and 3D MIP coronal and sagittal reconstructed images were obtained. One or more of the following individualized dose reduction techniques were utilized for this study: 1. Automated exposure control. 2. Adjustment of the mA and/or kV according to patient size. 3. Use of iterative reconstruction technique. Findings: No filling defect is seen within the major branches of either pulmonary artery. There is no CT evidence of pulmonary embolism. The heart is mildly enlarged. Atherosclerotic calcification of the thoracic aorta is seen. The thoracic aorta is mildly tortuous but tapers normally.. There is a large sliding hiatal hernia. Mild to moderate bullous emphysematous changes are seen involving both lungs. Dependent subsegmental atelectasis is seen involving both lungs. No area of consolidation, pleural effusion or pneumothorax is seen. Impression: There is no CT evidence of pulmonary embolism. Electronically signed by: Sai Keith MD (06/15/2017 8:20 PM) [facility] DICTATED AND SIGNED BY: SAI KEITH MD DATE: 06/15/172010 CC: ANGELIC AVITIA DO; OMAR SIMMONS MD ~ Course & Med Decision Making Course & Med Decision Making Pertinent Labs and Imaging studies reviewed. (See chart for details) Differential diagnosis: Acute myocardial ischemia, heart failure, cardiac tamponade, bronchospasm, pulmonary embolism, pneumothorax, pulmonary infection i.e. bronchitis or pneumonia, upper airway obstruction, anaphylaxis, aspiration , psychogenic, pulmonary contusion, toxidrome, pneumomediastinum, noncardiogenic pulmonary edema or ARDS, COPD, tuberculosis, cystic fibrosis, asthma, high altitude pulmonary edema, valvular dysfunction, cardiac dysrhythmia , stroke, neuromuscular diseases like myasthenia gravis gravis, ALS, Guillain- Brock syndrome, metabolic acidosis to include diabetic ketoacidosis, sepsis, and obstructive disorders like massive obesity []Patient presents with shortness of breath and dizziness I believe has an exacerbation of her COPD possibly pneumonia given her symptoms of progressive weakness with decreased breath sounds are rhonchi at the bases. This could also represent congestive heart failure or some other inflammatory process. Patient initially had 3 duo nebs ordered and treatments will be initiated over the next hour. She'll be given some Solu-Medrol fluids antibiotics and pain meds. At approximately 6:15 PM patient was reevaluated feels markedly better after DuoNeb sign Medrol and oxygen treatment. Patient's chest x-ray is also reviewed at the time of CT scan of her head as well as her chest were not completed at this time. Patient is resting, as her CT report came back at 8:30 PM there is no obvious signs of pulmonary was also no signs of infiltrate, cardiomegaly or concerns of heart failure [employer] Systems Administrator note: Dr. David NATH [employer] Systems Administrator called at of the service called at 8:40 PM Consult called back at 8:40 PM Discussed the case I presented and they agreed with admission. Time of acceptance 8:[address] [place] [id number] IMAGING REPORT Signed PATIENT: KARISHMA MERINO ACCOUNT: [id number] : 1950 LOCATION: ER AGE: 66 SEX: F EXAM STATUS: REG ER ORD. PHYSICIAN: OMAR SIMMONS MD REASON: fall PROCEDURE: CT HEAD WO CONTRAST CT scan of the head without contrast 06/15/2017 Clinical History: Fall with the head trauma. Technique: Unenhanced, contiguous, 5 mm axial sections were obtained through the head. One or more of the following individualized dose reduction techniques were utilized for this study: 1. Automated exposure control. 2. Adjustment of the mA and/or kV according to patient size. 3. Use of iterative reconstruction technique. Findings: No previous imaging studies are available for comparison. There is generalized parenchymal atrophy. Areas of decreased attenuation are seen within the periventricular and subcortical white matter of both cerebral hemispheres consistent with areas of small vessel ischemic disease. No acute parenchymal abnormality is seen. No extra-axial fluid collection is noted. No skull fracture is seen. Impression: No acute intracranial abnormality is seen. Electronically signed by: Sai Keith MD (06/15/2017 8:11 PM) [facility] Critical Care: The high probability of sudden, clinically significant deterioration in the patient's condition required the highest level of my preparedness to intervene urgently. The services I provided to this patient were to treat and/or prevent clinically significant deterioration. Services included the following: chart data review, reviewing nursing notes and/or old charts, documentation time, regulatory consultant collaboration regarding findings and treatment options, medication orders and management, direct patient care, vital sign assessments and ordering, interpreting and reviewing diagnostic studies/ lab tests. Aggregate critical care time includes only time during which I was engaged in work directly related to the patient's care, as described above, whether at the bedside or elsewhere in the Emergency Department. It did not include time spent performing other reported procedures or the services of nurses or physician assistants. Critical Care Time: 30 min Dragon Disclaimer Dragon Disclaimer This electronic medical record was generated, in whole or in part, using a voice recognition dictation system. Departure Departure: Impression: Primary Impression: COPD exacerbation Additional Impression: Musculoskeletal pain Disposition: 09 ADMITTED INPATIENT Admitting Physician: Mike Reyes Condition: GUARDED Referrals: ANGELIC AVITIA DO (PCP) Problem Qualifiers OMAR SIMMONS MD Jun 15, 2017 18:56
[2017-06-15] MEDS ORDERED: IPRATRPIUM/ALBUTEROL 0.5/2.5MG 3 ML NEBU. NEB ONE ×2 (19:00→20:15)
[2017-06-15] MEDS ORDERED: IOHEXOL 300 MG/ML 75 ML VIAL. IV ONE (19:00)
[2017-06-15] MEDS ORDERED: methylPREDNISolone SOD SUCC PF 125 MG/2 ML VIAL. IV ONE (19:00)
[2017-06-15 19:33] LABS: BASO % 1 % (0-3); EOS # 0.3 x10^3/uL (0.0-0.7); EOS % 7 % (0-3); HEMATOCRIT 39.4 % (36.0-47.0); HEMOGLOBIN 12.4 g/dL (12.0-15.5); LYMPH # 0.9 x10^3/uL (1.0-4.8); LYMPH % 22 % (24-48); MEAN CORPUSCULAR HEMOGLOBIN 28 pg (25-35); MEAN CORPUSCULAR HGB CONC 32 g/dL (31-37); MEAN CORPUSCULAR VOLUME 87 fL (79-100); MONO # 0.3 x10^3/uL (0.0-1.1); MONO % 7 % (0-9); NEUT # 2.6 x10^3uL (1.8-7.7); NEUT % 63 % (31-73); PLATELET COUNT 203 x10^3/uL (140-400); RED BLOOD COUNT 4.53 x10^6/uL (3.50-5.40); RED CELL DISTRIBUTION WIDTH 20.1 % (11.5-14.5); WHITE BLOOD COUNT 4.2 x10^3/uL (4.0-11.0)
[2017-06-15 19:46] LABS: ALBUMIN 3.4 g/dL (3.4-5.0); CALCIUM 8.4 mg/dL (8.5-10.1); CREATININE 0.7 mg/dL (0.6-1.0); DIRECT BILIRUBIN 0.1 mg/dL (0.0-0.2); GFR 83.7; MAGNESIUM 2.1 mg/dL (1.8-2.4); POTASSIUM 3.8 mmol/L (3.5-5.1); TOTAL BILIRUBIN 0.3 mg/dL (0.2-1.0)
--- NOTE | 2017-06-15 20:15 | RAD ---
CT scan of the head without contrast 06/15/2017 Clinical History: Fall with the head trauma. Technique: Unenhanced, contiguous, 5 mm axial sections were obtained through the head. One or more of the following individualized dose reduction techniques were utilized for this study: 1. Automated exposure control. 2. Adjustment of the mA and/or kV according to patient size. 3. Use of iterative reconstruction technique. Findings: No previous imaging studies are available for comparison. There is generalized parenchymal atrophy. Areas of decreased attenuation are seen within the periventricular and subcortical white matter of both cerebral hemispheres consistent with areas of small vessel ischemic disease. No acute parenchymal abnormality is seen. No extra-axial fluid collection is noted. No skull fracture is seen. Impression: No acute intracranial abnormality is seen. Electronically signed by: Sai Keith MD (06/15/2017 8:11 PM) [facility]
--- NOTE | 2017-06-15 20:24 | RAD ---
CTA scan of the Chest with Contrast (Pulmonary Embolism protocol) 06/15/2017 Clinical History: Shortness of breath and cough. Technique: After the intravenous administration of 75 cc of Isovue-370, contiguous, 0.625 mm axial sections were obtained through the chest. 2 mm axial and 3D MIP coronal and sagittal reconstructed images were obtained. One or more of the following individualized dose reduction techniques were utilized for this study: 1. Automated exposure control. 2. Adjustment of the mA and/or kV according to patient size. 3. Use of iterative reconstruction technique. Findings: No filling defect is seen within the major branches of either pulmonary artery. There is no CT evidence of pulmonary embolism. The heart is mildly enlarged. Atherosclerotic calcification of the thoracic aorta is seen. The thoracic aorta is mildly tortuous but tapers normally.. There is a large sliding hiatal hernia. Mild to moderate bullous emphysematous changes are seen involving both lungs. Dependent subsegmental atelectasis is seen involving both lungs. No area of consolidation, pleural effusion or pneumothorax is seen. Impression: There is no CT evidence of pulmonary embolism. Electronically signed by: Sai Keith MD (06/15/2017 8:20 PM) [facility]
[2017-06-15] MEDS ORDERED: ACETAMINOPHEN 325 MG TABLET PO PRN (21:00)
[2017-06-15] MEDS ORDERED: ONDANSETRON PF 4 MG/2 ML VIAL. IV PRN (21:00)
--- NOTE | 2017-06-15 21:05 | EKG ---
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
--- NOTE | 2017-06-15 21:33 | NUR ---
The patient, KARISHMA MERINO, 66 y/o, F admitted by REYES LEON MD, was given written information regarding hospital policies, unit procedures and contact persons. Valuables were checked and logged. Call light in place. Will continue to monitor.
[2017-06-15 21:42] VITALS: BP 123/69
[2017-06-15] MEDS: IV NORMAL SALINE 1,000ML 1,000 ML IV SCH (22:00)
[2017-06-15 22:27] LABS: PLT ESTIMATE ADEQUATE (ADEQUATE); TEAR DROP CELLS FEW
[2017-06-15 22:28] LABS: ANISOCYTOSIS MOD; BURR CELLS PRESENT; HYPOCHROMIA MOD; MICROCYTOSIS SLIGHT; OVALOCYTES FEW; TARGET CELLS PRESENT
[2017-06-15] MEDS ORDERED: MULT-237 PO (22:35)
[2017-06-15] MEDS ORDERED: hormone troche PO (22:39)
[2017-06-15] MEDS ORDERED: ALBU8.5H8 INH (22:40)
[2017-06-15] MEDS ORDERED: FLUT12AE IH (22:40)
[2017-06-15] MEDS ORDERED: ALBU2.5V5 NEB (22:41)
[2017-06-15] MEDS ORDERED: RANI150T2 PO (22:42)
[2017-06-15] MEDS ORDERED: IPRA3AMP NEB (22:42)
[2017-06-15] MEDS ORDERED: TIOT18CA IH (22:42)
[2017-06-15] MEDS ORDERED: HYDR20TA17 PO (22:43)
[2017-06-15] MEDS ORDERED: BUPR1PAT6 TD (22:44)
[2017-06-15] MEDS ORDERED: ALPR1TAB6 PO (22:45)
[2017-06-15 22:46] VITALS: BP 128/86
[2017-06-15 23:42] VITALS: BP 110/56
[2017-06-16] VITALS (22 sets, daily range): BP systolic 110–168; BP diastolic 47–84
[2017-06-16] MEDS: IV NORMAL SALINE 1,000ML 1,000 ML IV SCH ×3 (05:24→14:42)
[2017-06-16] MEDS ORDERED: IPRATRPIUM/ALBUTEROL 0.5/2.5MG 3 ML NEBU. NEB SCH (08:00)
--- NOTE | 2017-06-16 08:10 | RAD ---
EXAM: Chest, single view. HISTORY: Shortness of breath. COMPARISON: 05/20/2017. FINDINGS: A frontal view of the chest is obtained. There is no infiltrate, effusion or pneumothorax. There is left basilar atelectasis. There is a moderate hiatal hernia. There is emphysema. The heart is normal in size. There are dorsal column stimulator leads terminating over the mid thoracic spine. There is internal fixation of the proximal left humerus. There is a linear density overlying the right upper extremity and right axilla, likely overlying the patient rather than a catheter. IMPRESSION: 1. No acute pulmonary finding. 2. Emphysema. 3. Hiatal hernia.
[2017-06-16] MEDS ORDERED: ALBUTEROL SULFATE 2.5 MG/3 ML NEBU. NEB PRN (08:15)
[2017-06-16 08:32] LABS: BILIRUBIN,URINE NEG (NEG); CLARITY,URINE CLEAR; COLOR,URINE YELLOW; GLUCOSE,URINE NEG (NEG)
[2017-06-16 08:33] LABS: BACTERIA,URINE 0 /HPF (0-FEW); NITRITE,URINE NEG (NEG); RBC,URINE OCC /HPF (0-2); SQUAMOUS EPITHELIAL CELL,UR FEW /LPF; UROBILINOGEN,URINE 0.2 mg/dL (0.2 mg/dL); WBC,URINE OCC /HPF (0-4)
[2017-06-16] MEDS ORDERED: ALPRAZolam 0.5 MG TABLET PO PRN ×2 (08:45)
[2017-06-16] MEDS ORDERED: HORMONE TROCHE PO SCH (09:00)
[2017-06-16] MEDS: MULTIVITAMIN with MINERAL TABLET. PO SCH (09:00)
[2017-06-16] MEDS ORDERED: HYDROCODONE BITARTRATE 20 MG PO SCH (09:00)
[2017-06-16] MEDS ORDERED: BUPRENORPHINE TD SCH (09:00)
[2017-06-16] MEDS ORDERED: PNEUMOC CONJ VACC 23-VALENT 0.5 ML VIAL. VAX IM ONE (09:00)
[2017-06-16] MEDS: FAMOTIDINE 20 MG TABLET PO SCH ×2 (09:01→20:37)
[2017-06-16] MEDS: DULoxetine HCL 60 MG CAPSULE.DR PO SCH ×2 (09:01→20:37)
[2017-06-16 09:02] LABS: HEMATOCRIT 34.8 % (36.0-47.0); HEMOGLOBIN 11.2 g/dL (12.0-15.5); RED BLOOD COUNT 4.04 x10^6/uL (3.50-5.40); RED CELL DISTRIBUTION WIDTH 19.6 % (11.5-14.5); WHITE BLOOD COUNT 4.1 x10^3/uL (4.0-11.0)
[2017-06-16 09:08] LABS: ALBUMIN 3.1 g/dL (3.4-5.0); ALBUMIN/GLOBULIN RATIO 0.8 (1.0-1.7); CALCIUM 8.3 mg/dL (8.5-10.1); CREATININE 0.9 mg/dL (0.6-1.0); GFR 62.6; TOTAL BILIRUBIN 0.2 mg/dL (0.2-1.0)
[2017-06-16] MEDS: IPRATRPIUM/ALBUTEROL 0.5/2.5MG 3 ML NEBU. NEB SCH ×3 (11:16→20:56)
[2017-06-16] MEDS: LACTOBACILLUS RHAMNOSUS GG 1 CAPSULE. PO SCH ×2 (11:45→20:37)
[2017-06-16] MEDS: PREGABALIN 25 MG CAPSULE PO SCH (11:46)
[2017-06-16] MEDS: methylPREDNISolone SOD SUCC PF 125 MG/2 ML VIAL. IV SCH ×2 (14:26→20:38)
[2017-06-16] MEDS ORDERED: DEXTROSE 50% 25 GM / 50ML DISP.SYRIN. IV PRN (14:45)
[2017-06-16] MEDS: INSULIN ASPART 300 UNITS/3 ML INSULN.PEN SQ SCH (17:00)
[2017-06-16] MEDS: PREGABALIN 50 MG CAPSULE PO SCH (20:37)
[2017-06-17] VITALS (15 sets, daily range): BP systolic 124–169; BP diastolic 61–92
[2017-06-17] MEDS: IPRATRPIUM/ALBUTEROL 0.5/2.5MG 3 ML NEBU. NEB SCH ×6 (00:58→20:50)
[2017-06-17] MEDS: methylPREDNISolone SOD SUCC PF 125 MG/2 ML VIAL. IV SCH (05:26)
[2017-06-17 06:35] LABS: BASO % 0 % (0-3); EOS % 0 % (0-3); HEMATOCRIT 34.7 % (36.0-47.0); HEMOGLOBIN 11.3 g/dL (12.0-15.5); LYMPH # 0.4 x10^3/uL (1.0-4.8); LYMPH % 5 % (24-48); MEAN CORPUSCULAR HEMOGLOBIN 28 pg (25-35); MEAN CORPUSCULAR HGB CONC 33 g/dL (31-37); MEAN CORPUSCULAR VOLUME 85 fL (79-100); MONO # 0.2 x10^3/uL (0.0-1.1); MONO % 2 % (0-9); NEUT # 7.3 x10^3uL (1.8-7.7); NEUT % 93 % (31-73); PLATELET COUNT 149 x10^3/uL (140-400); RED BLOOD COUNT 4.11 x10^6/uL (3.50-5.40); RED CELL DISTRIBUTION WIDTH 19.9 % (11.5-14.5); WHITE BLOOD COUNT 7.8 x10^3/uL (4.0-11.0)
[2017-06-17 06:44] LABS: ALBUMIN 3.1 g/dL (3.4-5.0); ALBUMIN/GLOBULIN RATIO 0.8 (1.0-1.7); CALCIUM 8.7 mg/dL (8.5-10.1); CREATININE 0.6 mg/dL (0.6-1.0); POTASSIUM 3.8 mmol/L (3.5-5.1); TOTAL BILIRUBIN 0.4 mg/dL (0.2-1.0); TOTAL PROTEIN 7.1 g/dL (6.4-8.2)
[2017-06-17] MEDS: PREGABALIN 25 MG CAPSULE PO SCH ×2 (06:46→11:38)
[2017-06-17 07:23] LABS: % LYMPHS 6 % (24-48); % MONOS 2 % (0-10); % SEGS 92 % (35-66)
[2017-06-17 07:24] LABS: HYPOCHROMIA SLIGHT; PLT ESTIMATE ADEQUATE (ADEQUATE)
[2017-06-17 07:25] LABS: ANISOCYTOSIS SLIGHT; MICROCYTOSIS SLIGHT; OVALOCYTES OCC
[2017-06-17 07:26] LABS: TOXIC GRANULATION SLIGHT
[2017-06-17 07:27] LABS: TEAR DROP CELLS OCC
[2017-06-17] MEDS: INSULIN ASPART 300 UNITS/3 ML INSULN.PEN SQ SCH ×3 (07:30→16:30)
[2017-06-17] MEDS: FAMOTIDINE 20 MG TABLET PO SCH ×2 (08:55→20:26)
[2017-06-17] MEDS: LACTOBACILLUS RHAMNOSUS GG 1 CAPSULE. PO SCH ×2 (08:55→20:26)
[2017-06-17] MEDS: MULTIVITAMIN with MINERAL TABLET. PO SCH (08:55)
[2017-06-17] MEDS: DULoxetine HCL 60 MG CAPSULE.DR PO SCH ×2 (08:55→20:26)
--- NOTE | 2017-06-17 08:55 | HP ---
ADMIT DATE: 06/15/2017 HISTORY OF PRESENT ILLNESS: The patient is a 66-year-old female patient who was brought to the Emergency Room with a complaint of progressive weakness and dizziness with a fall today. She admits that over the last several days, she has been having increasing shortness of breath, especially with exertion. She has a nonproductive cough, subjective chills, but no fever. She has been using cough drop without much improvement and has been using her oxygen at home at 2 liters all the time with shortness of breath. She also has chest pressure 2 days ago described as squeezing in the center of her chest with no radiation to her back and she said that she was awakened from sleep. The pain lasted about 20 minutes and then resolved after her grandson gave her breathing treatment. She apparently has fallen twice in the last several days, landing from standing position to sitting position in her laundry room. However, she denied any loss of consciousness or hitting her head. Denied any specific weakness of any particular limb. Denied any chest pain at the time of these episodes or prior cardiac history. She was found down by her grandson today after she was down for about 20 minutes. She was evaluated in the Emergency Room extensively. Her chemistry was unremarkable. Her white cell count is normal. Her chest x-ray showed no acute pulmonary findings, emphysema, or hiatal hernia. Because of her headache, she has had a CT scan of the head, which showed there is some generalized parenchymal atrophy. Areas of decreased attenuation were seen within the periventricular and subcortical white matter of both cerebral hemispheres consistent with areas of small vessel ischemic disease. No acute parenchymal abnormality seen. No extraaxial fluid collection is noted. No skull fracture is seen. She has had CT scan of the chest with PE protocol, which basically showed no filling defect seen within the major branches of either pulmonary arteries. There is no CT evidence of pulmonary embolism. Heart is mildly enlarged. Atherosclerotic calcification of thoracic aorta is seen. The thoracic aorta is mildly tortuous, but tapers normally. There is a large sliding hiatal hernia. Gyyr-yq-efgldwcx bullous emphysematous changes are seen involving both lungs. Dependent subsegmental atelectasis is seen involving both lungs. No areas of consultation, pleural effusion, or pneumothorax are seen. The patient was admitted and was started on IV Solu-Medrol, IV levofloxacin together with her nebulized albuterol and Atrovent. PAST MEDICAL HISTORY: Significant for fibromyalgia, rheumatoid arthritis, COPD, on oxygen. She has also had a history of severe anemia. According to her, she has dropped hemoglobin 3 grams last year and rushed [facility] and was extensively investigated with upper and lower GI endoscopy and has had multiple blood transfusions. She also had another acute blood loss anemia for which she was admitted to [facility] on 05/20/2017 and was discharged on 05/24/2017. Her EGD showed that she has hiatal hernia with Isauro lesion and gastric peptic ulcers consistent with nonsteroidal anti-inflammatory induced peptic ulcer disease for which she was started on proton-pump inhibitor. The patient is also known to have hepatitis C; however, her liver enzymes were all within normal range. PAST SURGICAL HISTORY: Significant for cholecystectomy, total abdominal hysterectomy, bilateral salpingo-oophorectomy, bilateral total knee arthroplasty, and left shoulder surgery. She also has multiple esophagogastroduodenoscopy as well as colonoscopy. ALLERGIES: She is allergic to CODEINE. MEDICATIONS: She is currently on albuterol sulfate 1 puff every 6 hours, albuterol sulfate by nebulizer every 6 hours, alprazolam 1 mg every 6-8 hours. She is on Butrans 1 patch once a week, duloxetine 60 mg p.o. b.i.d., Flonase, Flovent 2 puffs twice a day, hydrocodone bitartrate or Hysingla extended release 20 mg daily, ipratropium bromide and albuterol inhaler 0.5-2.5 mg in 3 mL by nebulizer 4 times a day, multivitamin with mineral 1 tablet once a day, pregabalin 50 mg twice a day, Lyrica 50 mg at bedtime, ranitidine 150 mg p.o. b.i.d., tiotropium bromide 18 mcg, Spiriva HandiHaler 1 inhalation once a day, hormone 1 tablet p.o. b.i.d. FAMILY HISTORY: Her father at age of 78 because of prostate cancer. One older brother of prostate cancer. She has 3 other brothers still alive, two of them live in [facility] and [place], and one lives in [place]. She has 1 older sister that has . She does not know the cause of . Her mother at age of 58 because of complications of rheumatoid arthritis. SOCIAL HISTORY: She is and lives with her and one of her sons lives with them. She is an ex-smoker, quit about 30 years ago. She does not drink alcohol or use recreational drugs. 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 REVIEW OF SYSTEMS: The patient denied any blurring of vision, cataract, glaucoma, or macular degeneration. Denied any earache, tinnitus, or sensorineural deafness. Denied any nosebleeds, stuffy nose, or postnasal drip. Denied any sore throat, sore tongue, toothache, hoarseness of voice, or difficulty swallowing. She did complain of cough mostly with dark sputum with no blood. She had 1 episode of chest pain that has resolved. She continued to complain of shortness of breath on exertion, but denied any orthopnea or paroxysmal nocturnal dyspnea. She denied any chills, rigors, or fever. PHYSICAL EXAMINATION: GENERAL: On arrival to the Emergency Room, she was somewhat pale, but no jaundiced or cyanosed. No thyromegaly. No jugular venous distension. No limb edema. VITAL SIGNS: Her heart rate was 97, blood pressure was 94/58, temperature was 97.8, respiratory rate 28, and oxygen saturation was 94% on room air. HEAD, EYES, EARS, NOSE AND THROAT: Showed normocephalic, atraumatic. NECK: Supple. HEART: Showed normal first and second heart sounds. No gallop, rub, or murmur. CHEST: Showed central trachea, equally reduced expansion, reduced air entry, vesicular breath sounds with diffuse scattered rhonchi. Few crepitations, mostly on the right side. ABDOMEN: Distended, soft, nontender. No guarding or rigidity. No organomegaly. All hernial orifices intact. Bowel sounds normal. NEUROLOGIC: She was awake, alert, responding appropriately. Cranial nerves intact. EXTREMITIES: She moves extremities without difficulty. LABORATORY DATA: While in the Emergency Room, she has had lab work done, which showed a white cell count of 4200, hemoglobin 12.4, hematocrit 39, MCV 87, platelet count of 203,000 with normal manual differential. Her chemistry showed a serum sodium of 142, potassium 3.8, chloride 107, bicarbonate 25, anion gap of 10, BUN 6, creatinine 0.7. Estimated GFR was 84 mL per minute. Her glucose was 130, calcium was 8.4, magnesium was 2.1. Total bilirubin, AST, ALT, alkaline phosphatase were normal. Her total protein was 7, albumin 3.4. Lipase was 99. Her urinalysis showed the urine was yellow, clear with a pH of 8,urine specific gravity of 1.015. The urine was negative for protein, glucose, ketones, blood, nitrite and leukocyte esterase. The urine was negative for rbc's, wbc's, no bacteria. Her CT scan of the head without contrast showed no acute intracranial abnormalities seen. Chest x-ray showed no acute pulmonary findings. She has emphysema and hiatal hernia and CT scan of the chest with PE protocol showed that the patient was negative for pulmonary embolism. She has dwcc-ux-vyntbxjd bullous emphysematous changes are seen involving both lungs. She has dependent subsegmental atelectases seen involving both lungs. No areas of consolidation, pleural effusion, or pneumothorax were seen. ASSESSMENT AND PLAN: In summary, this is a 66-year-old female patient who was admitted with chronic obstructive pulmonary disease exacerbation. She has multiple other medical problems including fibromyalgia and rheumatoid arthritis. She has had 2 episodes of severe anemia with hemoglobin that dropped down to 3 grams. One time, she was admitted to [facility] and had multiple transfusions. An upper GI endoscopy showed she has peptic ulcer disease. In May 2017, she was admitted to [facility] again with severe anemia with hemoglobin of 3.6 and required multiple blood transfusions. She was discharged home on a proton-pump inhibitor. My plan is to continue with bronchodilators, steroids, all her pain medication, and oxygen supplementation. REYES LEON MD DR: JACLYN/fabienne JOB#: [id number] / [id number]
--- NOTE | 2017-06-17 09:25 | PN ---
DATE: 06/16/2017 SUBJECTIVE: The patient is resting, slightly propped up in bed, continued to complain of cough and chest tightness and wheezing, although she is somewhat much better. She has had a CT scan, which showed no evidence of any pulmonary embolism or lung infiltrate. PHYSICAL EXAMINATION: GENERAL: When I examined her this afternoon, she looked well and was clearly in no apparent respiratory distress, pale, but no jaundice, cyanosis or thyromegaly. No jugular venous distention. No limb edema. VITAL SIGNS: Her heart rate was 82, blood pressure 113/53, temperature was 97, respiratory rate was 18 and oxygen saturation was 97% on 2 liters of oxygen. HEAD, EYES, EARS, NOSE AND THROAT: Normocephalic, atraumatic. NECK: Supple. HEART: Showed normal first and second heart sounds. No gallop, rub or murmur. CHEST: Shows central trachea, equally reduced expansion, reduced air entry, vesicular sounds with few scattered rhonchi. Crepitations mostly in the right side posteriorly. ABDOMEN: Distended, soft, nontender. No guarding or rigidity. No organomegaly. Hernial orifices intact. Bowel sounds normal. NEUROLOGIC: She was awake, alert, responding appropriately. Cranial nerves intact. She moves extremities without difficulty. Her intake was 1150, output was 300. LABORATORY DATA: Her lab work this morning showed that her white cell count is 4,100, hemoglobin 11.2, hematocrit 34.8, MCV 86 and platelet count of 173,000. Her serum sodium was 142, potassium 4, chloride 106, bicarbonate 23, anion gap of 13, BUN 8, creatinine 0.9. Estimated GFR was 63 mL per minute. Her glucose was 250, calcium was 8.2. Total bilirubin, AST, ALT, alkaline phosphatase were normal. Total protein 7, albumin 3.1. TSH was 2.32. Her lactic acid is only 1.1. She has 2 sets of cardiac enzymes, both less than 0.07. ASSESSMENT AND PLAN: In summary, this is again acute hypoxic respiratory failure, chronic obstructive pulmonary disease exacerbation. The patient also has rheumatoid arthritis, fibromyalgia, recurrent episodes of severe blood loss anemia; however, H and H is stable for the time being. Plan is to continue with steroids, IV Levaquin as well as bronchodilator and all her pain medication and we will monitor her closely and decide on further management accordingly. REYES LEON MD DR: Beth JOB#: [id number] / [id number]
--- NOTE | 2017-06-17 15:42 | NUR ---
Pt transferred to room 113. No complaints. SR on tele. Denies pain. Lung sounds wheezy, no edema. SOA with exertion, on 3L NC. Bed low and locked. Pt alert and oriented x4. BSC brought in for patients use as pt gets PRICE. Will continue to monitor.
[2017-06-17] MEDS: methylPREDNISolone SOD SUCC PF 40 MG/ML VIAL. IV SCH (20:26)
[2017-06-17] MEDS: PREGABALIN 50 MG CAPSULE PO SCH (20:26)
[2017-06-18] MEDS: IPRATRPIUM/ALBUTEROL 0.5/2.5MG 3 ML NEBU. NEB SCH ×4 (04:00→09:36)
--- NOTE | 2017-06-18 04:31 | PN ---
DATE: 06/17/2017 SUBJECTIVE: The patient is resting, slightly propped up in bed, in no apparent distress. She is awake, alert, stated that she is generally feeling much better, less wobbly, the chest is much improved tightness and wheezing. PHYSICAL EXAMINATION: GENERAL: When I examined her, she looked pale. No jaundice, cyanosis or thyromegaly. No jugular venous distention, no limb edema. VITAL SIGNS: Her heart rate was 83, blood pressure 140/70, temperature was 98.1, respiratory rate was 21, and oxygen saturation was 97% on 3 liters of oxygen. HEAD, EYES, EARS, NOSE AND THROAT: Showed normocephalic, atraumatic. NECK: Supple. HEART: Showed normal first and second heart sounds with no gallop, rub, or murmur. CHEST: Shows central trachea, equally reduced expansion, reduced air entry, vesicular sounds with very few scattered rhonchi, could not appreciate any crepitation. ABDOMEN: Distended, soft, nontender. No guarding or rigidity. No organomegaly. Hernial orifices intact. Bowel sounds normal. NEUROLOGIC: She is awake, alert, responding appropriately. Cranial nerves intact. She moves extremities without difficulty. Her intake over the last 24 hour was 870. No output was recorded. LABORATORY WORK: This morning showed a white cell count 7800, hemoglobin 11, hematocrit 34, MCV 85, and platelet count of 149,000 with normal manual differential. Her chemistry showed a serum sodium 140, potassium 3.8, chloride 104, bicarbonate 27, anion gap of 9, BUN 8, creatinine 0.6, estimated GFR was 100 mL per minute. Her glucose 145, calcium was 8.7. Total bilirubin, AST, ALT, alkaline phosphatase were normal. Her total protein was 7.1, albumin 3.1. Her sedimentation rate was only 11 mm per hour and her C-reactive protein was 2.2 mg/dL. ASSESSMENT: 1. Acute hypoxic hypercapnic respiratory failure, improving. 2. Chronic obstructive pulmonary exacerbation. 3. Rheumatoid arthritis seemed to be in remission. Her sed rate and C-reactive protein were within normal range. 4. Fibromyalgia, on Lyrica and longer acting hydrocodone. 5. Recurrent episode of severe blood loss anemia, resolved. Her H and H is now 11 and 33. She was admitted twice with hemoglobin of 3 grams, one was in [facility] and most [facility] requiring multiple blood transfusions. PLAN: To cut down on her steroids to 40 mg IV twice a day and hopefully if she is feeling better tomorrow, she can be discharged on a tapering course of steroids and oral antibiotic. REYES LEON MD DR: JACLYN/fabienne JOB#: [id number] / [id number]
[2017-06-18 05:02] VITALS: BP 167/90
[2017-06-18 07:10] LABS: CALCIUM 8.8 mg/dL (8.5-10.1); CREATININE 0.6 mg/dL (0.6-1.0); POTASSIUM 3.7 mmol/L (3.5-5.1)
[2017-06-18] MEDS: PREGABALIN 25 MG CAPSULE PO SCH ×2 (07:30→11:11)
[2017-06-18] MEDS: INSULIN ASPART 300 UNITS/3 ML INSULN.PEN SQ SCH ×2 (07:30→11:30)
[2017-06-18 10:44] VITALS: BP 151/75
[2017-06-18] MEDS: methylPREDNISolone SOD SUCC PF 40 MG/ML VIAL. IV SCH (11:10)
[2017-06-18] MEDS: MULTIVITAMIN with MINERAL TABLET. PO SCH (11:11)
[2017-06-18] MEDS: FAMOTIDINE 20 MG TABLET PO SCH (11:11)
[2017-06-18] MEDS: LACTOBACILLUS RHAMNOSUS GG 1 CAPSULE. PO SCH (11:11)
[2017-06-18] MEDS: DULoxetine HCL 60 MG CAPSULE.DR PO SCH (11:11)
[2017-06-18] MEDS ORDERED: PRED-220 PO (11:38)
[2017-06-18] MEDS ORDERED: DOXY100T PO (11:38)
--- NOTE | 2017-06-18 13:36 | PDOC3 ---
Discharge Summary Visit Information Date of Admission: Jun 15, 2017 Date of Discharge: Jun 18, 2017 Final Diagnosis Problems Medical Problems: (1) COPD exacerbation Status: Acute (2) Musculoskeletal pain Status: Acute Acute hypoxic hypercapnic respiratory failure, improving. 2. Chronic obstructive pulmonary exacerbation. 3. Rheumatoid arthritis seemed to be in remission. Her sed rate and C-reactive protein were within normal range. 4. Fibromyalgia, on Lyrica and longer acting hydrocodone. 5. Recurrent episode of severe blood loss anemia, resolved. Her H and H is now 11 and 33. She was admitted twice with hemoglobin of 3 grams, one was in [facility] and most recently in 05/2017 to [facility] requiring multiple blood transfusions. 6. health maintenance-received pneumococal vaccine. Problems: Brief Hospital Course Allergies Allergies Coded Allergies Type Severity Reaction Last Updated Verified codeine Adverse Reaction Intermediate 01/02/15 Yes Vital Signs Vital Signs Date Time Temp Pulse Resp B/P (MAP) Pulse Ox O2 Delivery O2 Flow Rate FiO2 06/18/17 10:44 97.9 87 20 151/75 (100) 98 2.0 06/18/17 09:36 Nasal Cannula Lab Results Laboratory Tests Test 06/16/17 16:30 06/16/17 20:23 06/17/17 06:10 06/17/17 11:30 Glucose (Fingerstick) 148 mg/dL (70-99) 175 mg/dL (70-99) 160 mg/dL (70-99) White Blood Count 7.8 x10^3/uL (4.0-11.0) Red Blood Count 4.11 x10^6/uL (3.50-5.40) Hemoglobin 11.3 g/dL (12.0-15.5) Hematocrit 34.7 % (36.0-47.0) Mean Corpuscular Volume 85 fL (79-100) Mean Corpuscular Hemoglobin 28 pg (25-35) Mean Corpuscular Hemoglobin Concent 33 g/dL (31-37) Red Cell Distribution Width 19.9 % (11.5-14.5) Platelet Count 149 x10^3/uL (140-400) Neutrophils (%) (Auto) 93 % (31-73) Lymphocytes (%) (Auto) 5 % (24-48) Monocytes (%) (Auto) 2 % (0-9) Eosinophils (%) (Auto) 0 % (0-3) Basophils (%) (Auto) 0 % (0-3) Neutrophils # (Auto) 7.3 x10^3uL (1.8-7.7) Lymphocytes # (Auto) 0.4 x10^3/uL (1.0-4.8) Monocytes # (Auto) 0.2 x10^3/uL (0.0-1.1) Eosinophils # (Auto) 0.0 x10^3/uL (0.0-0.7) Basophils # (Auto) 0.0 x10^3/uL (0.0-0.2) Segmented Neutrophils % 92 % (35-66) Lymphocytes % 6 % (24-48) Monocytes % 2 % (0-10) Toxic Granulation Slight Platelet Estimate Adequate (ADEQUATE) Polychromasia Hypochromasia Slight Anisocytosis Slight Microcytosis Slight Tear Drop Cells Occ Ovalocytes Occ Erythrocyte Sedimentation Rate 11 (0-25) Sodium Level 140 mmol/L (136-145) Potassium Level 3.8 mmol/L (3.5-5.1) Chloride Level 104 mmol/L (98-107) Carbon Dioxide Level 27 mmol/L (21-32) Anion Gap 9 (6-14) Blood Urea Nitrogen 8 mg/dL (7-20) Creatinine 0.6 mg/dL (0.6-1.0) Estimated GFR (Cockcroft-Gault) 100.0 BUN/Creatinine Ratio 13 (6-20) Glucose Level 145 mg/dL (70-99) Calcium Level 8.7 mg/dL (8.5-10.1) Total Bilirubin 0.4 mg/dL (0.2-1.0) Aspartate Amino Transf (AST/SGOT) 11 U/L (15-37) Alanine Aminotransferase (ALT/SGPT) 21 U/L (14-59) Alkaline Phosphatase 67 U/L (46-116) C-Reactive Protein 2.2 mg/L (0-3.3) Total Protein 7.1 g/dL (6.4-8.2) Albumin 3.1 g/dL (3.4-5.0) Albumin/Globulin Ratio 0.8 (1.0-1.7) Test 06/17/17 19:28 06/18/17 06:07 06/18/17 07:23 06/18/17 11:39 Glucose (Fingerstick) 111 mg/dL (70-99) 115 mg/dL (70-99) 98 mg/dL (70-99) Sodium Level 138 mmol/L (136-145) Potassium Level 3.7 mmol/L (3.5-5.1) Chloride Level 102 mmol/L (98-107) Carbon Dioxide Level 29 mmol/L (21-32) Anion Gap 7 (6-14) Blood Urea Nitrogen 9 mg/dL (7-20) Creatinine 0.6 mg/dL (0.6-1.0) Estimated GFR (Cockcroft-Gault) 100.0 Glucose Level 127 mg/dL (70-99) Calcium Level 8.8 mg/dL (8.5-10.1) Brief Hospital Course Ms. Valadez is a 66 old [sex] who presented with [ ] HISTORY OF PRESENT ILLNESS: The patient is a 66-year-old female patient who was brought to the Emergency Room with a complaint of progressive weakness and dizziness with a fall today. She admits that over the last several days, she has been having increasing shortness of breath, especially with exertion. She has a nonproductive cough, subjective chills, but no fever. She has been using cough drop without much improvement and has been using her oxygen at home at 2 liters all the time with shortness of breath. She also has chest pressure 2 days ago described as squeezing in the center of her chest with no radiation to her back and she said that she was awakened from sleep. She was treated with IV steroids and lLevaquin for her possible acute bronchitis. She improved greatly during her admission and was ready for discharge on 06/18. Discharge Information Condition at Discharge: Improved Disposition/Orders: D/C to Home w/ HH Dischare Medications Current Medications Fentanyl Citrate (Fentanyl 2ml Vial) 50 mcg PRN Q15MIN PRN IV PAIN GREATER THAN 3/10 Last administered on 06/15/17 19:01; Start 06/15/17 at 18:45; Stop 06/15/17 at 20:56; Status DC Sodium Chloride 1,000 ml @ 1,000 mls/hr Q1H IV Last administered on 19:01; Start 06/15/17 at 18:38; Stop 06/15/17 at 19:37; Status DC Sodium Chloride (Normal Saline Flush) 10 ml QSHIFT PRN IV AFTER MEDS AND BLOOD DRAWS; Start 06/15/17 at 18:45 Albuterol/ Ipratropium (Duoneb) 3 ml 1X ONCE NEB Last administered on 18:51; Start 06/15/17 at 19:00; Stop 06/15/17 at 19:01; Status DC Methylprednisolone Sodium Succinate (SOLU-Medrol 125MG VIAL) 125 mg 1X ONCE IV Last administered on 06/15/17 19:01; Start 06/15/17 at 19:00; Stop at 19:01; Status DC Iohexol (Omnipaque 300 Mg/ml) 75 ml 1X ONCE IV Last administered on 19:40; Start 06/15/17 at 19:00; Stop 06/15/17 at 19:01; Status DC Levofloxacin/ Dextrose 150 ml @ 150 mls/hr 1X ONCE IV Last administered on 19:02; Start 06/15/17 at 19:00; Stop 06/15/17 at 19:59; Status DC Albuterol/ Ipratropium (Duoneb) 3 ml 1X ONCE NEB Last administered on 20:01; Start 06/15/17 at 20:15; Stop 06/15/17 at 20:16; Status DC Ondansetron HCl (Zofran) 4 mg PRN Q4HRS PRN IV NAUSEA/VOMITING; Start at 21:00; Stop 06/16/17 at 20:59; Status DC Fentanyl Citrate (Fentanyl 2ml Vial) 50 mcg PRN Q1HR PRN IV PAIN Last administered on 06/16/17 01:44; Start 06/15/17 at 21:00; Stop 06/16/17 at 20 :59; Status DC Sodium Chloride 1,000 ml @ 100 mls/hr Q10H IV Last administered on 06/16/17 05:24; Start 06/15/17 at 20:49; Stop 06/16/17 at 20:48; Status DC Acetaminophen (Tylenol) 650 mg PRN Q4HRS PRN PO FEVER Last administered on 09:00; Start 06/15/17 at 21:00; Stop 06/16/17 at 20:59; Status DC Albuterol/ Ipratropium (Duoneb) 3 ml RTQID NEB Last administered on 06/16/17 06:02; Start 06/16/17 at 08:00; Stop 06/16/17 at 08:19; Status DC Pneumococcal Polyvalent Vaccine (Pneumovax 23) 0.5 ml ONCE ONCE VAX IM Last administered on 06/16/17 11:48; Start 06/16/17 at 09:00; Stop 06/16/17 at 09 :01; Status DC Albuterol/ Ipratropium (Duoneb) 3 ml Q4HRS NEB Last administered on 06/18/17 09:36; Start 06/16/17 at 12:00 Albuterol Sulfate (Ventolin) 2.5 mg PRN Q2HR PRN NEB SHORTNESS OF BREATH; Start 06/16/17 at 08:15 Methylprednisolone Sodium Succinate (SOLU-Medrol 125MG VIAL) 60 mg Q8HRS IV Last administered on 06/17/17 05:26; Start 06/16/17 at 14:00; Stop 06/17/17 at 11:24; Status DC Levofloxacin/ Dextrose 150 ml @ 150 mls/hr Q24H IV ; Start 06/16/17 at 09:00; Stop 06/16/17 at 09:00; Status DC Duloxetine HCl (Cymbalta) 60 mg BID PO Last administered on 06/18/17 11:11; Start 06/16/17 at 09:00 Pregabalin (Lyrica) 50 mg QHS PO Last administered on 06/17/17 20:26; Start 06/16/17 at 21:00 Pregabalin (Lyrica) 25 mg BIDACBL PO Last administered on 06/18/17 11:11; Start 06/16/17 at 11:30 Alprazolam (Xanax) 1 mg PRN Q8HRS PRN PO ANXIETY / AGITATION; Start 06/16/17 at 08:45 Non-Formulary Medication 1 each WEEKLY TD ; Start 06/16/17 at 09:00; Stop 06/22 at 09:00; Status DC Non-Formulary Medication 20 mg DAILY PO ; Start 06/16/17 at 09:00; Stop at 09:00; Status DC Multivitamins/ Calcium (Thera-M Plus) 1 tab DAILY PO Last administered on 06/18 11:11; Start 06/16/17 at 09:00 Famotidine (Pepcid) 20 mg BID PO Last administered on 06/18/17 11:11; Start 06/16/17 at 09:00 Non-Formulary Medication 1 tab BID PO ; Start 06/16/17 at 09:00; Stop at 09:00; Status DC Alprazolam (Xanax) 1 mg PRN Q6HRS PRN PO ANXIETY / AGITATION Last administered on 06/16/17 09:03; Start 06/16/17 at 08:45 Levofloxacin/ Dextrose 150 ml @ 150 mls/hr Q24H IV Last administered on 18:31; Start 06/16/17 at 19:00 Lactobacillus Rhamnosus (Culturelle) 1 cap BID PO Last administered on 11:11; Start 06/16/17 at 09:00 Insulin Aspart (NovoLOG) 0-5 UNITS TIDAC SQ ; Start 06/16/17 at 16:30 Dextrose 12.5 gm PRN Q15MIN PRN IV SEE COMMENTS; Start 06/16/17 at 14:45 Methylprednisolone Sodium Succinate (SOLU-Medrol 40MG VIAL) 40 mg BID IV Last administered on 06/18/17 11:10; Start 06/17/17 at 21:00 Active Scripts Active Prednisone 10 Mg Tablet 10 Mg PO DAILY 40MGX2, 30MGX2,20MGX2,10MGX2 THEN STOP Doxycycline Hyclate 100 Mg Tablet 1 Tab PO BID Reported Alprazolam 1 Mg Tablet 1 Mg PO PRN Q6-8HRS PRN Butrans (Buprenorphine) 1 Each Patch.tdwk 1 Each TD WEEKLY Hysingla ER (Hydrocodone Bitartrate) 20 Mg Tab.er.24h 20 Mg PO DAILY Ranitidine Hcl 150 Mg Tablet 150 Mg PO BID Spiriva (Tiotropium [place]) 18 Mcg Cap.w.dev 18 Mcg IH DAILY Duoneb 0.5-3(2.5) Mg/3 Ml (Albuterol/Ipratropium) 3 Ml Ampul.neb 3 Ml NEB QID Albuterol Sulfate Neb Soln (Albuterol Sulfate) 2.5 Mg/3 Ml Vial.neb 2.5 Mg NEB PRN Q6HRS PRN Proair Hfa Inhaler (Albuterol Sulfate) 8.5 Gm Hfa.aer.ad 1 Puff INH PRN Q6HRS PRN Flovent 110MCG Hfa (Fluticasone Propionate) 12 Gm Aer.w.adap 2 Puff IH BID [hormone milad] 1 Tab PO BID Daily Vitamin Formula-Minerals (Multivitamin With Minerals) 1 Each Tablet 1 Each PO DAILY Lyrica (Pregabalin) 50 Mg Capsule 1 Cap PO QHS Lyrica (Pregabalin) 50 Mg Capsule 25 Mg PO BIDACBL Duloxetine Hcl 60 Mg Capsule.dr 60 Mg PO BID Patient Instructions Patient Instuctions Medications reconciled. will go home on a Prednisone taper and Doxycycline. KAREN THOMAS DO Jun 18, 2017 13:36
== END 2017-06-18 13:34 | disposition home or self-care (01) | DRG 189 ==
LOC: ER 18:07 → ICU 20:40 → 1 SOUTH 06-17 15:02
PROVIDERS: ADMIT Internal Medicine; ATTEND Internal Medicine
DX: J96.01 Acute respiratory failure with hypoxia (principal); Z99.81 Dependence on supplemental oxygen; J44.0 Chronic obstructive pulmonary disease with (acute) lower respiratory infection; J44.1 Chronic obstructive pulmonary disease with (acute) exacerbation; J98.11 Atelectasis; W18.39XA Other fall on same level, initial encounter; J20.9 Acute bronchitis, unspecified; D50.0 Iron deficiency anemia secondary to blood loss (chronic); F41.9 Anxiety disorder, unspecified; J96.02 Acute respiratory failure with hypercapnia; K27.9 Peptic ulcer, site unspecified, unspecified as acute or chronic, without hemorrhage or perforation; K44.9 Diaphragmatic hernia without obstruction or gangrene; M06.9 Rheumatoid arthritis, unspecified; Z96.653 Presence of artificial knee joint, bilateral; M79.7 Fibromyalgia; R29.6 Repeated falls; Z79.51 Long term (current) use of inhaled steroids; Z79.899 Other long term (current) drug therapy; Z80.42 Family history of malignant neoplasm of prostate; Z87.11 Personal history of peptic ulcer disease; Z87.891 Personal history of nicotine dependence; Z90.710 Acquired absence of both cervix and uterus; Z86.19 Personal history of other infectious and parasitic diseases; Z88.8 Allergy status to other drugs, medicaments and biological substances; Z90.49 Acquired absence of other specified parts of digestive tract; Z90.722 Acquired absence of ovaries, bilateral; Z82.61 Family history of arthritis; Y93.E2 Activity, laundry; Y92.098 Other place in other non-institutional residence as the place of occurrence of the external cause; Y99.8 Other external cause status
CPT/HCPCS: 36415; 70450; 71010; 71275; 80048; 80053; 80076; 81001; 82553; 82947; 83605; 83690; 83735; 83880; 84443; 84484; 85007; 85025; 85027; 85651; 86140; 87040; 87641; 90732; 93005; 94640; 94760; 96365; 96366; 96375; J1815; J1956; J2920; J2930; J3010; J7620; Q9967; 99291-25; J7030

== ENCOUNTER → 2017-07-02 | Outpatient (CLI) | payer MEDICARE, OTHER ==
[2017-06-18 10:44] VITALS: BP 151/75
[~2017-07-02] MED LIST changes: +ALBU2.5V5 NEB; +ALBU8.5H8 INH; +ALPR1TAB6 PO; +BUPR1PAT6 TD; +DOXY100T PO; +FLUT12AE IH; +HYDR20TA17 PO; +IPRA3AMP NEB; +MULT-237 PO; +PRED-220 PO; +RANI150T2 PO; +TIOT18CA IH; +hormone troche PO
--- NOTE | 2017-07-03 08:21 | RAD ---
Chest x-ray Indication: Shortness of breath Technique: PA and lateral views of the chest Comparison: Study from 06/15/2017 Findings: Heart is normal in size. Ectatic thoracic aorta. Mild right basilar patchy opacities noted. Otherwise, lungs are clear. No pneumothorax or pleural effusion. Status post ORIF of left proximal humeral fracture. Impression: Right basilar atelectasis, pneumonia and aspiration.
== END | disposition home or self-care (01) ==
LOC: RAD 17:30
PROVIDERS: ATTEND General Practice
DX: J69.0 Pneumonitis due to inhalation of food and vomit (principal); J98.11 Atelectasis
CPT/HCPCS: 71020

== ENCOUNTER 2017-09-15 19:43 | Emergency (ER) | payer MEDICARE, OTHER ==
[~2017-09-15] VITALS: Ht 315 cm; Wt 81.2 kg
[2017-09-15] MEDS ORDERED: IV NORMAL SALINE 1,000ML 1,000 ML IV SCH (19:52)
--- NOTE | 2017-09-15 19:52 | ED.ADGEN ---
Past History Past Medical History: Anxiety, Arthritis, COPD, Fibromyalgia, GERD Past Surgical History: Hysterectomy, Knee Replacement, Other Additional Past Surgical Histo: shoulder surgery Smoking: Quit Greater Than 1 Year Alcohol Use: None Drug Use: None Adult General Chief Complaint Chief Complaint Uh.. Uh. ... Uh...." HPI HPI Patient is a 66 year old female who presents with in respiratory failure with hypoxia. Poor gag. Suspected accidently overdosage and possible aspiration. Pt. found by family laying in pool of vomit in her bed. Pt. hypoxic on arrival of paramedics, given Narcan with some awaking, but remained very sedated. Hypoxic required 100% Non- rebreather. Pt. not protecting air way and still hypoxic on arrival. Intubated to protect air way and increase oxygenation. Vomit noted in airway on intubation. Pt. has hx chronic pain, and was taking increased amounts of her pain meds and benzodiazepines today by her family history. Pt. has hx of COPD, anxiety disorder, bipolar, borderline characteristic and non-compliance. Review of Systems Review of Systems Not currently available because of patient's critical state All other systems were reviewed and found to be within normal limits, except as documented in this note. Family History Family History Not currently available Current Medications Current Medications Current Medications Medications (Trade) Dose Ordered Sig/Niko Start Time Stop Time Status Last Admin Dose Admin Aspirin (Skip Aspirin) 325 mg 1X ONCE 09/15/17 20:00 09/15/17 20:01 DC Azithromycin (Zithromax) 500 mg STK-MED ONCE 09/15/17 22:50 09/15/17 22:51 DC Azithromycin 500 mg/Sodium Chloride 250 ml @ 250 mls/hr 1X ONCE 09/15/17 22:00 09/15/17 23:00 DC 09/15/17 23:00 250 MLS/HR Ceftriaxone Sodium (Rocephin Im) 1 gm 1X ONCE 09/15/17 22:00 09/15/17 22:01 DC 09/15/17 23:00 1 GM Norepinephrine Bitartrate (Levophed) 4 mg STK-MED ONCE 09/15/17 23:05 09/15/17 23:06 DC Norepinephrine Bitartrate 8 mg/ Sodium Chloride 258 ml @ 0 mls/hr CONT PRN 09/15/17 23:30 Propofol 100 ml @ As Directed STK-MED ONCE 09/15/17 20:21 09/15/17 20:22 DC Sodium Chloride 1,000 ml @ 1,000 mls/hr 1X ONCE 09/15/17 23:30 09/16/17 00:29 DC Succinylcholine Chloride (Anectine) 200 mg STK-MED ONCE 09/15/17 20:05 09/15/17 20:06 DC See nursing for home medications Allergies Allergies Allergies Coded Allergies Type Severity Reaction Last Updated Verified codeine Adverse Reaction Intermediate 01/02/15 Yes Physical Exam Physical Exam Constitutional: In acute distress, morbid in appearance. [] HENT: Normocephalic, atraumatic, bilateral external ears normal, oropharynx moist, very poor dentition, poor gag, no oral exudates, nose rhinorrhea Eyes: PERRLA, EOMI, conjunctiva normal, no discharge. [] Neck: Normal range of motion, no tenderness, supple, no stridor. [] Cardiovascular:Heart rate regular rhythm, no murmur []. Lungs & Thorax: Bilateral breath sounds with scattered wheezes and rhonchi on auscultation . Poor respiratory effort. Abdomen: Bowel sounds decreased,, soft, no tenderness, no masses, no pulsatile masses. [Old surgical scar Skin: Cyanotic fingertips and toes. Poor turgor Back: Old surgical scar Extremities: Moves all extremities with noxious stimuli. Deformed scar left shoulder. Knee scars. Neurologic: Minimal response to noxious stimuli, does withdraw all extremities to noxious stimuli. Psychologic: Unable to assess because of patient's depressed mental status Current Patient Data Vital Signs Vital Signs Date Time Temp Pulse Resp B/P (MAP) Pulse Ox O2 Delivery O2 Flow Rate FiO2 09/15/17 20:54 100 Lab Results Laboratory Tests Test 09/15/17 21:00 09/15/17 21:30 09/15/17 21:48 09/15/17 22:30 White Blood Count 12.7 x10^3/uL (4.0-11.0) H Red Blood Count 4.79 x10^6/uL (3.50-5.40) Hemoglobin 14.0 g/dL (12.0-15.5) Hematocrit 43.0 % (36.0-47.0) Mean Corpuscular Volume 90 fL (79-100) Mean Corpuscular Hemoglobin 29 pg (25-35) Mean Corpuscular Hemoglobin Concent 33 g/dL (31-37) Red Cell Distribution Width 14.9 % (11.5-14.5) H Platelet Count 217 x10^3/uL (140-400) Neutrophils (%) (Auto) 91 % (31-73) H Lymphocytes (%) (Auto) 7 % (24-48) L Monocytes (%) (Auto) 2 % (0-9) Eosinophils (%) (Auto) 0 % (0-3) Basophils (%) (Auto) 1 % (0-3) Neutrophils # (Auto) 11.5 x10^3uL (1.8-7.7) H Lymphocytes # (Auto) 0.8 x10^3/uL (1.0-4.8) L Monocytes # (Auto) 0.3 x10^3/uL (0.0-1.1) Eosinophils # (Auto) 0.0 x10^3/uL (0.0-0.7) Basophils # (Auto) 0.1 x10^3/uL (0.0-0.2) Sodium Level 138 mmol/L (136-145) Potassium Level 4.0 mmol/L (3.5-5.1) Chloride Level 100 mmol/L (98-107) Carbon Dioxide Level 32 mmol/L (21-32) Anion Gap 6 (6-14) Blood Urea Nitrogen 13 mg/dL (7-20) Creatinine 1.0 mg/dL (0.6-1.0) Estimated GFR (Cockcroft-Gault) 55.5 Glucose Level 161 mg/dL (70-99) H Calcium Level 8.5 mg/dL (8.5-10.1) Magnesium Level 1.8 mg/dL (1.8-2.4) Total Bilirubin 0.6 mg/dL (0.2-1.0) Direct Bilirubin 0.2 mg/dL (0.0-0.2) Aspartate Amino Transferase (AST) 33 U/L (15-37) Alanine Aminotransferase (ALT) 35 U/L (14-59) Alkaline Phosphatase 74 U/L (46-116) Creatine Kinase 63 U/L (26-192) Creatine Kinase MB (Mass) 0.6 ng/mL (0.0-3.6) Creatine Kinase MB Relative Index 1.0 % (0-4) Troponin I Quantitative < 0.017 ng/mL (0-0.055) VK-Hmc-H-Type Natriuretic Peptide 327 pg/mL (0-124) H Total Protein 6.6 g/dL (6.4-8.2) Albumin 3.3 g/dL (3.4-5.0) L Lipase 93 U/L (73-393) Urine Collection Type U cath Urine Color Straw Urine Clarity Cloudy Urine pH 5.5 Urine Specific [place] 1.015 Urine Protein 30 mg/dl (NEG-TRACE) Urine Glucose (UA) Neg mg/dL (NEG) Urine Ketones (Stick) Neg mg/dL (NEG) Urine Blood Neg (NEG) Urine Nitrite Neg (NEG) Urine Bilirubin Neg (NEG) Urine Urobilinogen Dipstick 0.2 mg/dL (0.2 mg/dL) Urine Leukocyte Esterase Neg (NEG) Urine RBC 3-5 /HPF (0-2) Urine WBC 1-4 /HPF (0-4) Urine Squamous Epithelial Cells Occ /LPF Urine Bacteria 0 /HPF (0-FEW) Urine Hyaline Casts Many /HPF Urine Mucus Marked /LPF Urine Opiates Screen Pos (NEG) Urine Methadone Screen Neg (NEG) Urine Barbiturates Neg (NEG) Urine Phencyclidine Screen Neg (NEG) Urine Amphetamine/Methamphetamine Neg (NEG) Urine Benzodiazepines Screen Pos (NEG) Urine Cocaine Screen Neg (NEG) Urine Cannabinoids Screen Neg (NEG) Urine Ethyl Alcohol Neg (NEG) Prothrombin Time 11.0 SEC (9.4-11.4) Prothrombin Time INR 1.1 (0.9-1.1) PTT 27 SEC (23-33) D-Dimer (Kristen) 0.49 mg/L (0.00-0.50) Lactic Acid Level 1.7 mmol/L (0.4-2.0) Salicylates Level 0.6 mg/dL (2.8-20.0) L Salicylate Last Dose Date Unknown Salicylate Last Dose Time Unknown Acetaminophen Level 59.5 mcg/mL (10-30) H Acetaminophen Last Dose Date Unknown Acetaminophen Last Dose Time Unknown Blood pH 7.34 (7.35-7.45) L Blood Gas PCO2 48 mmHg (35-45) H Blood Gas PO2 66 mmHg (80-100) L Blood Gas HCO3 26 mmol/L (22-26) Arterial Bld O2 Saturation (Calc) 91 % (92-99) L FiO2 50 % EKG EKG My interpretation of EKG shows a sinus rhythm at 78 bpm. There is somewhat prolonged QT interval. No findings of acute STEMI with contralateral changes. Findings of spinal stimulator artifact.[] Radiology/Procedures Radiology/Procedures My interpretation of chest x-ray shows adequate placement of ET tube and central line. No obvious pneumothorax. Findings of spinal stimulator. Findings of left shoulder fixation. Findings consistent with increased cephalization and poor ventilatory volumes. OG adequately placed. Course & Med Decision Making Course & Med Decision Making Pertinent Labs and Imaging studies reviewed. (See chart for details). Procedure note- intubation- patient intubated with 7.5 tube after 30 mg of etomidate and 100 mg of succinylcholine. ET placed to 22 cm at teeth. Secured with ET harding. Breath sounds equal with CO2 change and fog of tube. Increase in oxidation noted. Placed on vent, pressures titrated for volumes 500 and sats above 94%. OG placed after ET placement with return of gastric contents. Chest x-ray shows adequate placement of ET tube and OG. Diprovan titrated for sedation Central line placement- need for additional IV lines and instillation of vasoactive meds . Sterile prep and draping , gown and mask cap. Initial stick left subclavian resulted in return of arterial blood. Left IJ then cannulated by Seldinger technique. Line sutured in place with Biopatch. Sterile dressing. Chest x-ray shows adequate placement. No pneumothorax. Discussed presentation testing and treatment plan with - will accept patient transferred to [facility]. Critical care time 90 minutes. 60 minutes [id number]. See critical care flowsheet for details [] Final Impression Final Impression 1. Respiratory failure-hypoxia[] 2. Suspect accident OD- pain meds and sedatives 3. Aspiration pneumonitis 4. History chronic pain 5. Critical acetaminophen level 6. Diabetes elevated glucose 7. Leukocytosis 8. Respiratory and metabolic acidosis Problems: Dragon Disclaimer Dragon Disclaimer This electronic medical record was generated, in whole or in part, using a voice recognition dictation system. DANIELA FARLEY MD Sep 15, 2017 19:52
[2017-09-15] MEDS ORDERED: ASPIRIN 325 MG TABLET PO ONE (20:00)
[2017-09-15] MEDS ORDERED: SUCCINYLCHOLINE 200 MG/10 ML VIAL. ONE ×2 (20:05→21:00)
[2017-09-15] MEDS ORDERED: PROPOFOL 100 ML IV ONE (20:21)
[2017-09-15] MEDS ORDERED: ETOMIDATE 40 MG/20 ML VIAL. IV ONE (21:00)
--- NOTE | 2017-09-15 21:08 | RAD ---
CT head without intravenous contrast History: Question unintentional overdose. Comparison: CT head June 15, 2017. Technique: Axial images are obtained of the head from the skull base through the vertex without IV contrast. Exposure: One or more of the following individualized dose reduction techniques were utilized for this examination: 1. Automated exposure control 2. Adjustment of the mA and/or kV according to patient size 3. Use of iterative reconstruction technique Findings: The ventricles are appropriate in size, shape, and location for the patient's age. No obvious intracranial mass, mass-effect, midline shift, hemorrhage or obvious acute infarction is identified. Basilar cisterns are patent. Bone windows demonstrate no acute calvarial abnormality. The visualized paranasal sinuses appear clear. Impression: No acute intracranial process. Please note that CT can be relatively insensitive to acute ischemic infarction for up to 24 hours after symptom onset. Electronically signed by: Giovani Lazar MD (09/15/2017 9:06 PM) [id number]
[2017-09-15 21:29] LABS: BASO # 0.1 x10^3/uL (0.0-0.2); BASO % 1 % (0-3); EOS % 0 % (0-3); LYMPH # 0.8 x10^3/uL (1.0-4.8); LYMPH % 7 % (24-48); MEAN CORPUSCULAR HEMOGLOBIN 29 pg (25-35); MEAN CORPUSCULAR HGB CONC 33 g/dL (31-37); MEAN CORPUSCULAR VOLUME 90 fL (79-100); MONO # 0.3 x10^3/uL (0.0-1.1); MONO % 2 % (0-9); NEUT # 11.5 x10^3uL (1.8-7.7); NEUT % 91 % (31-73); PLATELET COUNT 217 x10^3/uL (140-400); RED BLOOD COUNT 4.79 x10^6/uL (3.50-5.40); RED CELL DISTRIBUTION WIDTH 14.9 % (11.5-14.5); WHITE BLOOD COUNT 12.7 x10^3/uL (4.0-11.0)
[2017-09-15 21:53] LABS: ALBUMIN 3.3 g/dL (3.4-5.0); CALCIUM 8.5 mg/dL (8.5-10.1); DIRECT BILIRUBIN 0.2 mg/dL (0.0-0.2); GFR 55.5; MAGNESIUM 1.8 mg/dL (1.8-2.4); TOTAL BILIRUBIN 0.6 mg/dL (0.2-1.0); TOTAL PROTEIN 6.6 g/dL (6.4-8.2)
[2017-09-15] MEDS ORDERED: AZITHROMYCIN 500 MG in IV NORMAL SALINE 250ML 250 ML IV ONE (22:00)
[2017-09-15] MEDS ORDERED: cefTRIAXone IM 1 GM VIAL IM ONE (22:00)
[2017-09-15 22:16] LABS: AMPHETAMINE/METHAMPHETAMINE NEG (NEG); BARBITURATES NEG (NEG); BENZODIAZEPINES POS (NEG); CANNABINOIDS NEG (NEG); COCAINE NEG (NEG); METHADONE NEG (NEG); OPIATES POS (NEG); PHENCYCLIDINE NEG (NEG)
[2017-09-15 22:19] LABS: ACETAMIN 59.5 mcg/mL (10-30); SALIC 0.6 mg/dL (2.8-20.0)
[2017-09-15 22:33] LABS: BACTERIA,URINE 0 /HPF (0-FEW); BILIRUBIN,URINE NEG (NEG); CLARITY,URINE CLOUDY; COLOR,URINE STRAW; GLUCOSE,URINE NEG (NEG); NITRITE,URINE NEG (NEG); SQUAMOUS EPITHELIAL CELL,UR OCC /LPF; UROBILINOGEN,URINE 0.2 mg/dL (0.2 mg/dL)
[2017-09-15 22:34] LABS: HYALINE CASTS, URINE MANY /HPF
[2017-09-15] MEDS ORDERED: IV NORMAL SALINE 250ML 250 ML ONE ×2 (22:49→23:05)
[2017-09-15] MEDS ORDERED: AZITHROMYCIN 500 MG VIAL. IV ONE (22:50)
[2017-09-15] MEDS ORDERED: NOREPINEPHRINE BITARTRATE 4 MG/4 ML VIAL. IV ONE (23:05)
[2017-09-15] MEDS ORDERED: IV NORMAL SALINE 1,000ML 1,000 ML IV ONE (23:30)
[2017-09-15] MEDS ORDERED: NOREPINEPHRINE BITARTRATE 8 MG in IV NORMAL SALINE 250ML 250 ML IV PRN (23:30)
[2017-09-15 23:32] LABS: BGAS PH 7.34 (7.35-7.45)
[2017-09-16 00:05] VITALS: BP 110/62
--- NOTE | 2017-09-16 00:15 | EKG ---
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 RI6.01 Electronically Signed On 09-17-2017 16:38:40 ULTRASOUND SONOGRAPHER by Maksim Grajeda
--- NOTE | 2017-09-16 08:41 | RAD ---
AP PORTABLE CHEST Clinical Indication: Possible unintentional Od. Found by family. Comparison: Two-view chest 07/02/2017. Findings: There is endotracheal tube tip is 4.8 cm from the [place]. Enteric tube tip is in the proximal stomach. Atherosclerotic and tortuous thoracic aorta. Cardiac size is normal. Patient is rotated accentuating the right hilum. Lungs are clear. No pleural abnormality. Spinal stimulator redemonstrated. IMPRESSION: Appropriate position of life support devices.
--- NOTE | 2017-09-16 08:43 | RAD ---
AP PORTABLE CHEST Clinical Indication: CENTRAL LINE PLACEMENT. Comparison: AP chest, same day 2052 hours. Findings: There is new left IJ central line, tip in mid SVC. Endotracheal tube and enteric tube are stable. Side port of the enteric tube is in the distal esophagus, the enteric tube may need to be advanced. Mediastinal contours are stable. Mild pulmonary vascular congestion. No pleural abnormality. Hardware of the proximal left humerus, partially seen. IMPRESSION: 1. Left IJ central line, tip in mid SVC. Enteric tube may need to be advanced. 2. Mild pulmonary vascular congestion.
== END 2017-09-16 00:10 | disposition short-term general hospital (02) ==
LOC: ER 19:43
DX: J69.0 Pneumonitis due to inhalation of food and vomit (principal); J96.91 Respiratory failure, unspecified with hypoxia; G89.29 Other chronic pain; E11.9 Type 2 diabetes mellitus without complications; D72.829 Elevated white blood cell count, unspecified; E87.2 Acidosis; E87.4 Mixed disorder of acid-base balance; F41.9 Anxiety disorder, unspecified; J44.9 Chronic obstructive pulmonary disease, unspecified; K21.9 Gastro-esophageal reflux disease without esophagitis; M79.7 Fibromyalgia; Z87.891 Personal history of nicotine dependence; Z88.5 Allergy status to narcotic agent; Z91.19 Patient's noncompliance with other medical treatment and regimen
CPT/HCPCS: 31500; 36415; 36556; 43752; 70450; 71045; 80048; 80076; 80307; 81001; 82553; 82803; 83605; 83690; 83735; 83880; 84443; 84484; 85025; 85379; 85610; 85730; 87040; 93005; 96361; 96365; 96372; 99291; 99292; G0480; J0330; J0456; J0696; J7050; 99285-25; G0479; J7030